=== PATIENT | male | born 1940 | race Caucasian/White ===

== ENCOUNTER → 2017-10-20 11:01 | Outpatient (CLI) | payer MEDICARE, OTHER, SELFPAY ==
--- NOTE | 2017-10-20 11:01 | DT_ITS ---
This patient was seen during an EMR downtime October 13, 2017 - October 20, 2017. This patient may have a combination of paper and electronic documentation or all paper documentation. All documentation is viewable within the e-chart portion of [facility] for each patient visit.
[2017-10-20 12:27] LABS: Absolute Lymphocyte Count 2.15 X10^3/ul (0.83-4.51); Absolute Neutrophil Count 3.6 X10^3/uL (2.0-7.7); Basophil# 0.06 X10^3/uL; Basophil% 0.9 % (0-1); Eosinophil# 0.48 X10^3/uL; Eosinophils% 6.9 % (0-5); Hematocrit 43.3 % (40-54); Hemoglobin 14.6 g/dl (13.0-16.5); Lymphocyte # 2.15 X10^3/ul (4.0); Lymphocyte % 31.1 % (19-41); Mean Corp Hgb Conc 33.7 g/gl (32-36); Mean Corpuscular Hgb 30.4 pg (27.0-32.0); Mean Corpuscular Volume 90.2 fL (80-94); Mean Platelet Vol. 9.4 fl (6.2-12.0); Monocyte# 0.66 X10^3/uL; Monocyte% 9.6 % (0-10); Neutrophil # 3.56 X10^3/uL (2.7-7.7); Neutrophil % 51.5 % (47-70); Platelet Count 209 K/mm3 (150-450); RBC Distribution Width CV 12.9 % (11.6-14.6); RBC Distribution Width SD 42.1 fl (35.1-43.9); White Blood Count 6.9 K/mm3 (4.4-11.0)
[2017-10-20 12:39] LABS: POSITIVE COUNT NO; POSITIVE DIFFERENTIAL NO; POSITIVE MORPHOLOGY NO
[2017-10-20 13:04] LABS: AST(SGOT) 24 U/L (15-37); Alanine Aminotransfer ALT/SGPT 21 U/L (16-61); Albumin, Serum 3.5 g/dL (3.2-5.0); Alkaline Phosphatase 119 U/L (45-117); Anion Gap 15 (5-15); BUN 17 mg/dL (7-18); BUN/Creat Ratio 17.7 RATIO (10-20); Calcium,Total 8.2 mg/dL (8.5-10.1); Chloride 105 mmol/L (98-107); Cholesterol 156 mg/dL (200); Creatinine, Serum 0.96 mg/dL (0.70-1.30); EST Glomerular Filtration Rate 81 mL/min (>60); Est Glom Filt Rate - Afr Amer 98 mL/min (>60); Globulin 3.4 g/dL (2.2-4.2); Glucose 83 mg/dL (74-106); High Density Lipoprotein 48 mg/dL; PSA,Total- Diagnostic 5.75 ng/mL (0.0-4.0); Potassium 4.2 mmol/L (3.5-5.1); Protein, Total 6.9 g/dL (6.4-8.2); Sodium Level 149 mmol/L (136-145); Triglycerides 189 mg/dL; Very Low Density Lipoprotein 38 mg/dL (5-40)
== END ==
PROVIDERS: Family Provider Family Medicine; PCP Family Medicine; Visit Provider Family Medicine
DX: I10 Essential (primary) hypertension (principal); C61 Malignant neoplasm of prostate
CPT/HCPCS: 36415; 80053; 80061; 84153; 85025

== ENCOUNTER → 2018-04-14 11:12 | Outpatient (CLI) | payer MEDICARE, OTHER, SELFPAY ==
[2018-04-14 15:42] LABS: Absolute Lymphocyte Count 1.83 X10^3/ul (0.83-4.51); Absolute Neutrophil Count 3.1 X10^3/uL (2.0-7.7); Basophil# 0.05 X10^3/uL; Basophil% 0.8 % (0-1); Eosinophil# 0.33 X10^3/uL; Eosinophils% 5.5 % (0-5); Hematocrit 42.9 % (40-54); Hemoglobin 14.7 g/dl (13.0-16.5); Lymphocyte # 1.83 X10^3/ul (4.0); Lymphocyte % 30.6 % (19-41); Mean Corp Hgb Conc 34.3 g/gl (32-36); Mean Corpuscular Hgb 31.7 pg (27.0-32.0); Mean Corpuscular Volume 92.5 fL (80-94); Mean Platelet Vol. 9.8 fl (6.2-12.0); Monocyte# 0.67 X10^3/uL; Monocyte% 11.2 % (0-10); Neutrophil # 3.09 X10^3/uL (2.7-7.7); Neutrophil % 51.7 % (47-70); Platelet Count 241 K/mm3 (150-450); RBC Distribution Width CV 12.8 % (11.6-14.6); RBC Distribution Width SD 42.4 fl (35.1-43.9); Red Blood Count 4.64 M/mm3 (4.6-6.2)
[2018-04-14 15:57] LABS: POSITIVE COUNT NO; POSITIVE DIFFERENTIAL NO; POSITIVE MORPHOLOGY NO
[2018-04-14 16:04] LABS: AST(SGOT) 27 U/L (15-37); Alanine Aminotransfer ALT/SGPT 25 U/L (16-61); Albumin, Serum 3.4 g/dL (3.2-5.0); Alkaline Phosphatase 110 U/L (45-117); Anion Gap 10 (5-15); BUN 18 mg/dL (7-18); BUN/Creat Ratio 16.8 RATIO (10-20); Calcium,Total 8.4 mg/dL (8.5-10.1); Chloride 105 mmol/L (98-107); Cholesterol 178 mg/dL (200); Creatinine, Serum 1.07 mg/dL (0.70-1.30); EST Glomerular Filtration Rate 71 mL/min (>60); Est Glom Filt Rate - Afr Amer 86 mL/min (>60); Globulin 3.3 g/dL (2.2-4.2); Glucose 78 mg/dL (74-106); High Density Lipoprotein 51 mg/dL; PSA,Total- Diagnostic 6.87 ng/mL (0.0-4.0); Potassium 3.9 mmol/L (3.5-5.1); Protein, Total 6.7 g/dL (6.4-8.2); Sodium Level 141 mmol/L (136-145); Triglycerides 88 mg/dL; Very Low Density Lipoprotein 18 mg/dL (5-40)
== END ==
PROVIDERS: Family Provider Family Medicine; PCP Family Medicine; Visit Provider Nurse Practitioner Adult Health
DX: R97.20 Elevated prostate specific antigen [PSA] (principal); I10 Essential (primary) hypertension; C61 Malignant neoplasm of prostate
CPT/HCPCS: 36415; 80053; 80061; 84153; 85025

== ENCOUNTER → 2018-07-14 10:08 | Outpatient (CLI) | payer MEDICARE, OTHER, SELFPAY ==
[2018-07-14 12:43] LABS: PSA,Total- Diagnostic 6.67 ng/mL (0.0-4.0)
== END ==
PROVIDERS: Family Provider Family Medicine; PCP Family Medicine; Visit Provider Family Medicine
DX: C61 Malignant neoplasm of prostate (principal)
CPT/HCPCS: 36415; 84153

== ENCOUNTER → 2018-09-30 11:00 | Outpatient (CLI) | payer MEDICARE, OTHER, SELFPAY ==
--- NOTE | 2018-09-30 11:15 | RAD_ITS ---
HISTORY: right rib pain. NKI. hx of prostate ca COMPARISON: 08/15/16 radiographs. FINDINGS: XR Ribs Unilateral W/ PA Chest Min 3 Views: LINES/DEVICES: None. LUNGS: Radiographically clear. No consolidation, edema or effusion. No pneumothorax. MEDIASTINUM AND CARDIOVASCULAR STRUCTURES: Cardiac silhouette not enlarged. Central airways and mediastinal contour are unremarkable. RIBS AND OSSEOUS STRUCTURES: Prominent degenerative changes right glenohumeral joint again demonstrated. No fractures. RAD/Ribs Uni Min 3V w/PA Chest IMPRESSION: No acute findings. at 0420 Reported and signed by: Jed Collins MD Electronically Signed: Jed Collins, at 4:19 EDT Tel , Service support ,
== END ==
PROVIDERS: Family Provider Family Medicine; PCP Family Medicine; Referring Provider Family Medicine; Visit Provider Family Medicine
DX: R07.81 Pleurodynia (principal)
CPT/HCPCS: 71101

== ENCOUNTER → 2018-10-06 12:38 | Outpatient (CLI) | payer MEDICARE, OTHER, SELFPAY ==
--- NOTE | 2018-10-06 12:41 | CT_ITS ---
STUDY: CT ABDOMEN AND PELVIS WITH CONTRAST REASON FOR EXAM: Male, 78 years old. Right-sided abdominal pain. History of prostate cancer. RADIATION DOSAGE (If Supplied By Facility): CTDIvol = ( 15.61 ) mGy, DLP = ( 1188.41 ) mGycm TECHNIQUE: Transaxial images were obtained from the dome of the diaphragm to the symphysis pubis with oral contrast. 100 IV/Oral Isovue 300 was administered. Sagittal and coronal images were reconstructed. Individualized dose optimization techniques were used for this CT. COMPARISON: None. FINDINGS: Mild degree of increased markings at the lung bases suggestive of basilar scarring. The visualized portions of the heart are within normal limits. There is decreased attenuation of the liver consistent with steatosis. Normal gallbladder and extrahepatic biliary system. Normal spleen. Normal pancreas. Normal bilateral adrenal glands. Normal right kidney. Normal left kidney. Normal visualized stomach. Normal small intestine. There are multiple colonic diverticula consistent with diverticulosis. The appendix is visualized and appears normal. There is diffuse atherosclerotic calcification of the abdominal aorta, without a demonstrated aneurysm. Normal inferior vena cava. Normal retroperitoneum. Normal urinary bladder. There is a small umbilical hernia containing fat. Small bilateral inguinal hernias containing fat. There are diffuse degenerative changes of the visualized lumbar spine. Straightening of the normal lumbar lordosis. CT/Abdomen/Pelvis WITH Contrast IMPRESSION: Sigmoid diverticulosis. Electronically Signed: Zaki Jacobo, at 15:58 EDT , Service support ,
[2018-10-06 15:01] LABS: CREATININE FINGERSTICK 1.5 mg/dL (0.70-1.30)
== END ==
PROVIDERS: Family Provider Family Medicine; PCP Family Medicine; Referring Provider Family Medicine; Visit Provider Family Medicine
DX: R10.9 Unspecified abdominal pain (principal)
CPT/HCPCS: 74177; Q9967

== ENCOUNTER → 2018-11-03 14:51 | Outpatient (CLI) | payer MEDICARE, OTHER, SELFPAY ==
[2018-11-03 14:45] VITALS: BMI 28.8
--- NOTE | 2018-11-03 14:54 | RAD_ITS ---
STUDY: X-RAY - LEFT SHOULDER REASON FOR EXAM: Pain. TECHNIQUE: 4 view(s) of the shoulder. COMPARISON: None. FINDINGS: There is glenohumeral arthrosis with small marginal osteophytes of the humeral head and joint space narrowing, progressed since the prior study. There is acromioclavicular arthrosis. Normal acromion. Normal humeral head and visualized proximal humerus. There is mildly increased calcific tendinitis since the prior study. Normal visualized pulmonary apex. RAD/Shoulder min 2 Views IMPRESSION: Glenohumeral arthrosis. Calcific tendinitis. Electronically Signed: Harsha Johnson MD at 10:49 EDT Tel , Service support ,
--- NOTE | 2018-11-03 14:54 | RAD_ITS ---
STUDY: X-RAY - CERVICAL SPINE REASON FOR EXAM: Male, 78 years old. Pain TECHNIQUE: 5 view(s) of the cervical spine were obtained. COMPARISON: May 29, 2010 FINDINGS: Normal anterior atlantoaxial articulation. Normal odontoid process. Normal cervical lordosis. No evidence for acute fracture or subluxation. Narrowed disc space at C4-5, C5-6 and C6-7 with osteophytic spurring. There is associated bilateral multilevel neuroforaminal stenosis also due to bony hypertrophy The soft tissue structures are unremarkable. RAD/Cerv Spine 4 or 5 Views IMPRESSION: No evidence for acute fracture or subluxation. Moderate spondylosis.. Electronically Signed: Renny Cano MD at 17:06 EDT , Service support ,
== END ==
PROVIDERS: Family Provider Family Medicine; PCP Family Medicine; Referring Provider Orthopaedic Surgery; Visit Provider Orthopaedic Surgery
DX: M25.512 Pain in left shoulder (principal); R20.0 Anesthesia of skin; R20.2 Paresthesia of skin
CPT/HCPCS: 72050; 73030

== ENCOUNTER → 2019-01-19 10:38 | Outpatient (CLI) | payer MEDICARE, OTHER, SELFPAY ==
[2017-12-13 09:41] VITALS: BMI 28.8
[2019-01-05 09:43] VITALS: BMI 28.8
[2019-01-19 12:50] LABS: Absolute Lymphocyte Count 1.75 X10^3/uL (0.83-4.51); Absolute Neutrophil Count 4.1 X10^3/uL (2.0-7.7); Basophil# 0.05 X10^3/uL; Basophil% 0.7 % (0-1); Eosinophil# 0.26 X10^3/uL; Eosinophils% 3.8 % (0-5); Hematocrit 43.1 % (40-54); Hemoglobin 14.3 g/dL (13.0-16.5); Lymphocyte # 1.75 X10^3/ul (4.0); Lymphocyte % 25.7 % (19-41); Mean Corp Hgb Conc 33.2 g/dL (32-36); Mean Corpuscular Hgb 30.5 pg (27.0-32.0); Mean Corpuscular Volume 91.9 fL (80-94); Mean Platelet Vol. 9.2 fl (6.2-12.0); Monocyte# 0.65 X10^3/uL; Monocyte% 9.5 % (0-10); NRBC Flagged by Analyzer 0 % (0-5); Neutrophil % 60.2 % (47-70); Platelet Count 242 K/mm3 (150-450); RBC Distribution Width CV 13.1 % (11.6-14.6); RBC Distribution Width SD 43.9 fl (35.1-43.9); Red Blood Count 4.69 M/mm3 (4.6-6.2); White Blood Count 6.8 K/mm3 (4.4-11.0)
[2019-01-19 13:18] LABS: ALB/GLOB Ratio 1.1 RATIO (0.9-2.4); AST(SGOT) 23 U/L (15-37); Alanine Aminotransfer ALT/SGPT 28 U/L (16-61); Albumin, Serum 3.3 g/dL (3.2-5.0); Alkaline Phosphatase 104 U/L (45-117); Anion Gap 7 (5-15); BUN 22 mg/dL (7-18); Calcium,Total 8.4 mg/dL (8.5-10.1); Chloride 110 mmol/L (98-107); Cholesterol 150 mg/dL (200); Creatinine, Serum 0.96 mg/dL (0.70-1.30); EST Glomerular Filtration Rate 81 mL/min (>60); Est Glom Filt Rate - Afr Amer 98 mL/min (>60); Globulin 3.1 g/dL (2.2-4.2); Glucose 119 mg/dL (74-106); High Density Lipoprotein 49 mg/dL; PSA,Total- Diagnostic 7.04 ng/mL (0.0-4.0); Potassium 3.6 mmol/L (3.5-5.1); Protein, Total 6.4 g/dL (6.4-8.2); Sodium Level 142 mmol/L (136-145); Triglycerides 116 mg/dL; Very Low Density Lipoprotein 23 mg/dL (5-40)
== END ==
PROVIDERS: Family Provider Family Medicine; PCP Family Medicine; Visit Provider Family Medicine
DX: I10 Essential (primary) hypertension (principal); E78.5 Hyperlipidemia, unspecified; C61 Malignant neoplasm of prostate
CPT/HCPCS: 36415; 80053; 80061; 84153; 85025

== ENCOUNTER → 2019-07-22 | Outpatient (CLI) | payer MEDICARE, OTHER, SELFPAY ==
[2019-01-05 09:43] VITALS: BMI 28.8
[2019-03-07 10:48] VITALS: BMI 28.8
[2019-07-22 12:41] LABS: Absolute Lymphocyte Count 1.97 X10^3/uL (0.83-4.51); Absolute Neutrophil Count 3.4 X10^3/uL (2.0-7.7); Basophil# 0.05 X10^3/uL; Basophil% 0.8 % (0-1); Eosinophil# 0.36 X10^3/uL; Eosinophils% 5.6 % (0-5); Hematocrit 43.5 % (40-54); Hemoglobin 14.6 g/dL (13.0-16.5); Lymphocyte # 1.97 X10^3/ul (4.0); Lymphocyte % 30.5 % (19-41); Mean Corp Hgb Conc 33.6 g/dL (32-36); Mean Corpuscular Hgb 31.2 pg (27.0-32.0); Mean Corpuscular Volume 92.9 fL (80-94); Mean Platelet Vol. 9.6 fl (6.2-12.0); Monocyte# 0.69 X10^3/uL; Monocyte% 10.7 % (0-10); NRBC Flagged by Analyzer 0 % (0-5); Neutrophil # 3.35 X10^3/uL (2.7-7.7); Neutrophil % 51.9 % (47-70); Platelet Count 244 K/mm3 (150-450); RBC Distribution Width CV 12.3 % (11.6-14.6); RBC Distribution Width SD 41.7 fl (35.1-43.9); Red Blood Count 4.68 M/mm3 (4.6-6.2); White Blood Count 6.5 K/mm3 (4.4-11.0)
[2019-07-22 13:25] LABS: ALB/GLOB Ratio 1.1 RATIO (0.9-2.4); AST(SGOT) 21 U/L (15-37); Alanine Aminotransfer ALT/SGPT 25 U/L (16-61); Albumin, Serum 3.3 g/dL (3.2-5.0); Alkaline Phosphatase 123 U/L (45-117); Anion Gap 7 (5-15); BUN 15 mg/dL (7-18); BUN/Creat Ratio 14.3 RATIO (10-20); Calcium,Total 8.2 mg/dL (8.5-10.1); Chloride 107 mmol/L (98-107); Cholesterol 134 mg/dL (200); Creatinine, Serum 1.05 mg/dL (0.70-1.30); EST Glomerular Filtration Rate 72 mL/min (>60); Est Glom Filt Rate - Afr Amer 88 mL/min (>60); Glucose 88 mg/dL (74-106); High Density Lipoprotein 51 mg/dL; PSA,Total - Annual Screen 6.02 ng/mL (0.00-4.00); Potassium 4.1 mmol/L (3.5-5.1); Protein, Total 6.3 g/dL (6.4-8.2); Sodium Level 140 mmol/L (136-145); Triglycerides 65 mg/dL; Very Low Density Lipoprotein 13 mg/dL (5-40)
== END | disposition home or self-care (01) ==
LOC: BFHLAB 09:10
PROVIDERS: Family Provider Family Medicine; PCP Family Medicine; Visit Provider Family Medicine
DX: C61 Malignant neoplasm of prostate (principal); I10 Essential (primary) hypertension; E78.5 Hyperlipidemia, unspecified
CPT/HCPCS: 36415; 80053; 80061; 84153; 85025; G0103

== ENCOUNTER 2019-10-01 16:33 | Observation (INO) | payer MEDICARE, OTHER, SELFPAY ==
[2019-03-07 10:48] VITALS: BMI 28.8
[2019-10-01] VITALS (7 sets, daily range): BP systolic 134–163; BP diastolic 76–104; PULSE 56–65; RESP 14–16; TEMP 36.3–36.6; O2SAT 92–97; BMI 28.2; BMI 27.6
--- NOTE | 2019-10-01 17:04 | EKG12_ITS ---
Test Reason : Blood Pressure : / mmHG Vent. Rate : 061 BPM Atrial Rate : 061 BPM P-R Int : 208 ms QRS Dur : 084 ms QT Int : 416 ms P-R-T Axes : 055 046 055 degrees QTc Int : 418 ms Normal sinus rhythm Normal ECG Confirmed by ANTHONY MEADE MD ([id number]), communications editor NOLBERTO GYU ([id number]) on 10/05/2019 2:21:29 PM Referred By: SCAR Confirmed By:ANTHONY MEADE MD
--- NOTE | 2019-10-01 17:05 | ED.DCSUM_ITS ---
History of Present Illness Chief Complaint: Chest Pain Informant: Patient Onset: Today - Approximately 1.25 hours ago, Days - Similar episode 4 days ago Context: Sudden Onset Timing: Intermittent - Duration 15 to 30 minutes Quality: Pressure type sensation Location: Mid chest to suprasternal notch Current Severity: Pain-free Maximum Severity: Severe Worsened by: Nothing Relieved by: Nothing Associated Symptoms: Nausea, diaphoresis and shortness of breath Narrative: Patient is an elderly 79-year-old male with history of hypertension hypercholesterolemia who quit smoking 30 years ago presents with midsternal chest tight pressure sensation 4 days ago and today that lasted approximately 15 to 20 minutes duration. The pain was associated with nausea, diaphoresis shortness of breath. He denies history of hiatal hernia or reflux. Denies black or maroon stool. Has blood in his stool. He denies food intolerance. The pain is not positional. The pain occurred at rest both times. He states Dr. Bowman performed a cardiac catheterization 10 years ago and was negative . He discontinued taking aspirin 6 months ago. Patient was concerned because he states the pain was severe and he got clammy with shortness of breath. Prior similar symptoms: No Recent Illness/Hospitalization: No - Past Medical History (1) History of hypertension Status: Acute (2) History of hypercholesterolemia Status: Acute Past Medical History - Allergies and Home Meds Allergies/Adverse Reactions: Allergies No Known Allergies Allergy (Unverified 10/01/19 16:38) Primary Care Physician: Wilfredo Pitts DO [Primary Care Provider] - Prior records reviewed: Yes Surgical History: - - Cardiac cath 10 years ago compartment syndrome right leg requiring fasciotomy Lives: Spouse/ Significant Other Smoking Status: Former smoker Alcohol: None Drugs: None Review of Systems General: Denies: Chills, Fever, Sweats Eyes: Denies: Visual changes - bilaterally, Diplopia ENT: Denies: Rhinorrhea, Sore throat Cardiovascular: Reports: Chest pain. Denies: Palpitations, Heart racing, -, - Respiratory: Reports: Dyspnea Gastrointestinal: Reports: Nausea. Denies: Abdominal pain, Vomiting, Diarrhea, Constipation, Melena, Hematochezia, -, - Genitourinary: Denies: Dysuria, Hematuria, Frequency Musculoskeletal: Denies: Myalgias, Arthralgias, Neck pain, Back pain, Swelling, Extremity Pain, -, - Skin: Denies: Rash, Wounds Neurological: Denies: Headache, Weakness, Numbness Hematologic: Denies: Easy bruising, Easy bleeding Physical Exam Vital Signs/Narrative: Vital Signs Temp Pulse Resp BP Pulse Ox 10/01/19 16:34 97.3 F L 63 15 150/92 H 97 Inital Vital Signs reviewed: Yes General: Well nourished, Well developed, No Acute Distress Head: Normocephalic, Atraumatic Eyes: Perrl, EOMI. Negative for: Pale conjunctiva, Scleral icterus ENT: Moist mucous membranes, No rhinorrhea Neck: Supple, Nontender, No lymphadenopathy, No JVD Cardiovascular: Regular rate, Regular rhythm, No murmurs, Normal S1, Normal S2 Respiratory: No distress, CTA bilaterally, Chest nontender Abdomen: Soft, Nontender, Nondistended, Normal bowel sounds, No masses Back: Nontender, Normal Inspection Extremities: Nontender, No edema. Negative for: Calf Tenderness Skin: Normal color, No rash, No Trauma. Negative for: Cyanosis, Diaphoresis, Jaundice Neurological: Alert, Oriented x3, Cranial nerves II-XII grossly intact, Normal Strength, Normal Sensation Psychological: Normal affect, Normal Mood Diagnostic/Tx/Re-eval Chest X-Ray - ED: 1 View, Normal, Heart, Lungs, Mediastinum, Bony Structures, No Acute Disease Impressions Chest X-Ray 10/01/19 17:15 IMPRESSION: Normal x-ray examination of the chest. Electronically Signed: Stephen Lawrence MD at 17:36 EDT , Service support , 10/01/19 17:15 Chest 1 View (Portable) [RAD] Stat Laboratory Results 10/01/19 10/01/19 16:49 16:49 WBC 6.9 RBC 4.54 L Hgb 14.2 Hct 42.6 MCV 93.8 MCH 31.3 MCHC 33.3 RDW Std Deviation 43.4 RDW Coeff of Bandar 12.6 Plt Count 229 MPV 9.3 Immature Gran % (Auto) 0.300 Neut % (Auto) 50.0 Lymph % (Auto) 30.0 [place] % (Auto) 12.0 H Eos % (Auto) 6.8 H Baso % (Auto) 0.9 Absolute Neuts (auto) 3.5 Absolute Lymphs (auto) 2.07 Nucleated RBC % 0 Sodium 139 Potassium 4.3 Chloride 107 Carbon Dioxide 27.0 Anion Gap 5 BUN 22 H Creatinine 1.13 Estim Creat Clear Calc 63.35 Est GFR (MDRD) Af Amer 81 Est GFR (MDRD) Non-Af 67 BUN/Creatinine Ratio 19.5 Glucose 92 Calcium 8.5 Troponin I < 0.015 Patient's work-up is negative. Patient's heart score is 5. Hospitalist was made aware patient and he will admit to PCU for further testing. - EKG Initial EKG Interpretation: Sinus Rhythm - Sinus rhythm with a ventricular rate of 61. MN interval 208 ms. QRS duration 84 ms. QT duration 416 ms. [place] is normal. EKG was normal. - Medical Decision Making Zentz with midsternal chest tightness with diaphoresis, shortness breath nausea need to rule out cardiac etiology versus noncardiac etiology. EKG and appropriate blood work was ordered. He will receive aspirin in the emergency department. ED Disposition - Plan for ED Patient: Disposition: Acute Care Hospital [facility] Diagnosis: Precordial chest pain, History of hypercholesterolemia, History of hypertension Referrals: Wilfredo Pitts DO [Primary Care Provider] -
--- NOTE | 2019-10-01 17:15 | RAD_ITS ---
STUDY: X-RAY CHEST REASON FOR EXAM: Male, 79 years old. chest pain TECHNIQUE: Single frontal view of the chest. COMPARISON: March 23, 2012 right RIBS August 15, 2016 FINDINGS: The lungs are clear and expanded. There is no demonstrated pleural abnormality. Normal size heart. Normal mediastinum and ar. Normal visualized pulmonary arteries. Normal visualized aortic arch and descending thoracic aorta. Normal visualized thoracic spine. Normal visualized ribs, clavicles, and shoulders. There is no demonstrated abnormality of the visualized soft tissue structures of the upper abdomen. RAD/Chest 1 View (Portable) IMPRESSION: Normal x-ray examination of the chest. Electronically Signed: Stephen Lawrence MD at 17:36 EDT , Service support ,
[2019-10-01] MEDS: Aspirin 81 MG TAB.CHEW 324 MG PO (17:24)
[2019-10-01 17:41] LABS: Absolute Lymphocyte Count 2.07 X10^3/uL (0.83-4.51); Absolute Neutrophil Count 3.5 X10^3/uL (2.0-7.7); Basophil# 0.06 X10^3/uL; Basophil% 0.9 % (0-1); Eosinophil# 0.47 X10^3/uL; Eosinophils% 6.8 % (0-5); Hematocrit 42.6 % (40-54); Hemoglobin 14.2 g/dL (13.0-16.5); Lymphocyte # 2.07 X10^3/ul (4.0); Mean Corp Hgb Conc 33.3 g/dL (32-36); Mean Corpuscular Hgb 31.3 pg (27.0-32.0); Mean Corpuscular Volume 93.8 fL (80-94); Mean Platelet Vol. 9.3 fl (6.2-12.0); Monocyte# 0.83 X10^3/uL; NRBC Flagged by Analyzer 0 % (0-5); Neutrophil # 3.45 X10^3/uL (2.7-7.7); Platelet Count 229 K/mm3 (150-450); RBC Distribution Width CV 12.6 % (11.6-14.6); RBC Distribution Width SD 43.4 fl (35.1-43.9); Red Blood Count 4.54 M/mm3 (4.6-6.2); White Blood Count 6.9 K/mm3 (4.4-11.0)
[2019-10-01 17:54] LABS: Anion Gap 5 (5-15); BUN 22 mg/dL (7-18); BUN/Creat Ratio 19.5 RATIO (10-20); Calcium,Total 8.5 mg/dL (8.5-10.1); Chloride 107 mmol/L (98-107); Creatinine, Serum 1.13 mg/dL (0.70-1.30); EST Glomerular Filtration Rate 67 mL/min (>60); Est Glom Filt Rate - Afr Amer 81 mL/min (>60); Estimated Creatinine Clearance 63.35 ml/min; Glucose 92 mg/dL (74-106); Potassium 4.3 mmol/L (3.5-5.1); Sodium Level 139 mmol/L (136-145)
--- NOTE | 2019-10-01 18:27 | PCM.HP.STD ---
Problem List (1) Atypical chest pain Status: Acute (2) History of hypertension Status: Chronic (3) History of hypercholesterolemia Status: Chronic History of Present Illness Date of Admission: 10/01/19 Chief Complaint: Chest pain 2 episodes in 1 week The patient is a 79 year old M with history of hypertension and dyslipidemia came to ER with chest pain, precordial with radiation to suprasternal notch, lasted for about 20 minutes. Pain started spontaneously at rest, felt like pressure, squeezing sensation with mild shortness of breath without aggravating or relieving factor. He had similar episode about a 1 week ago. He had mild diaphoresis but denies near syncope, syncope. He had similar chest pain about 10 to 15 years ago and was sent to [facility] by Dr. Bowman most probably had negative cath as verbally reported by the patient In ED, blood pressure is elevated 160/97 otherwise no hypoxia or tachypnea. EKG independently reviewed shows normal sinus rhythm at [address]-T abnormality suggestive of acute ischemia. First troponin normal. [] Past Medical History Past Medical History (Chronic Problems): Chronic Problems (Last Reviewed 03/07/19 @ 10:48 by Shyla Willis) History of hypertension (Chronic) History of hypercholesterolemia (Chronic) Medical History: Medical History (Last Reviewed 03/07/19 @ 10:48 by Shyla Willis) Cancer C80.1 HTN (hypertension) I10 Allergies No Known Allergies Allergy (Unverified 10/01/19 16:38) Home Medications: Ambulatory Orders Medication Instructions Recorded amlodipine 5 mg tablet 5 mg PO DAILY 05/30/17 Citalopram [Celexa] 20 mg PO DAILY 10/01/19 Losartan Potassium [Cozaar] 100 mg PO DAILY 10/01/19 Lovastatin 10 mg PO DAILY 10/01/19 Surgical History: - - Cardiac cath 10 years ago compartment syndrome right leg requiring fasciotomy Lives: Spouse/ Significant Other Smoking Status: Former smoker - Quit 25 years ago. Started at age of 25 smoked 1 to 2 cigarettes/week until age of 45. Alcohol: None Drugs: None - *Family History Paternal Family History: Family History (Last Reviewed 03/07/19 @ 10:48 by Shyla Willis) Other Leukemia History Items: No pertinent history Maternal Family History: Family History (Last Reviewed 03/07/19 @ 10:48 by Shyla Willis) Other Leukemia History Items: Heart Disease, Hypertension Review of Systems Constitutional: Denies: Chills, Fever, Weight Change HEENT: Denies: Head Aches, Sinus Congestion, Sinus Drainage Cardiovascular: Reports: Chest Pain. Denies: Palpitations Respiratory: Reports: Shortness of breath at rest. Denies: Cough, Sputum production Gastrointestinal: Denies: Abdominal Pain, Nausea, Vomiting Genitourinary: Denies: Dysuria Musculoskeletal: Denies: Joint Pain, Joint Tenderness Skin: Denies: Rash, Wounds Neurological: Denies: Numbness, Tingling, Focal weakness Psychiatric: Denies: Anxiety, Depression, Homicidal Ideations, Suicidal Ideations Hematologic/ Lymphatic: Denies: Easy Bruising, Easy Bleeding VTE Information - Inpt Only VTE Present on Admission: No VTE Mechan Device Prophylaxis: None VTE Pharm Prophylaxis ordered?: Yes - Physical Exam Vitals/I&O's: Vital Signs Temp Pulse Resp BP Pulse Ox 97.6 F L 65 15 160/97 H 96 10/01/19 18:17 10/01/19 18:17 10/01/19 18:17 10/01/19 18:17 10/01/19 18:17 Oxygen Delivery Method Room Air Weight: 225 lb 12.054 oz Body Mass Index (BMI) 28.2 General: Alert, Oriented x3, Cooperative HEENT: Atraumatic, PERRLA, EOMI, Normocephalic Neck: Supple, No JVD, Negative Carotid Bruits Lungs: Clear to auscultation, Normal air movement, No rhonchi, No wheeze, No rales Cardiovascular: Regular rate, Regular Rhythm, Normal S1, Normal S2, No murmurs Abdomen: Bowel Sounds Present, Soft, Non Tender, Non-Distended Extremities: No edema, Capillary Refill Less than 3 Seconds Skin: No rashes, No breakdown Musculoskeletal: No Tenderness to Palpation of Joints or Extremities Neurological: Cranial nerves II-XII grossly intact, Deep Tendon Reflexes 2+/4 and Symmetrical, Neuro grossly intact Psych/Mental Status: Normal Affect, Appropriate Laboratory Results 10/01/19 16:49: WBC 6.9, RBC 4.54 L, Hgb 14.2, Hct 42.6, MCV 93.8, MCH 31.3, MCHC 33.3, RDW Std Deviation 43.4, RDW Coeff of Bandar 12.6, Plt Count 229, MPV 9.3, Immature Gran % (Auto) 0.300, Neut % (Auto) 50.0, Lymph % (Auto) 30.0, [place] % (Auto) 12.0 H, Eos % (Auto) 6.8 H, Baso % (Auto) 0.9, Absolute Neuts (auto) 3.5, Absolute Lymphs (auto) 2.07, Nucleated RBC % 0 10/01/19 16:49: Sodium 139, Potassium 4.3, Chloride 107, Carbon Dioxide 27.0, Anion Gap 5, BUN 22 H, Creatinine 1.13, Estim Creat Clear Calc 63.35, Est GFR (MDRD) Af Amer 81, Est GFR (MDRD) Non-Af 67, BUN/Creatinine Ratio 19.5, Glucose 92, Calcium 8.5, Troponin I < 0.015 Assessment/Plan All Active Problems (Last Reviewed 03/07/19 @ 10:48 by Shyla Willis) Atypical chest pain (Acute) The patient is a 79 year old M with history of hypertension and dyslipidemia came to ER with chest pain, precordial with radiation to suprasternal notch, lasted for about 20 minutes. In ED, blood pressure is elevated 160/97 otherwise no hypoxia or tachypnea. EKG independently reviewed shows normal sinus rhythm at [address]-T abnormality suggestive of acute ischemia. First troponin normal. 1. Atypical chest pain, probably angina pectoris: Patient is going to PCU. Serial troponin and EKG. If troponins and EKG are negative, treadmill nuclear stress test tomorrow a.m. Fasting profile and TSH tomorrow a.m. 2. Hypertension, uncontrolled: Patient is on amlodipine 5 mg daily and Cozaar 100 mg daily. Hydralazine 10 mg IV q. 4 hourly for residual blood pressure more than 180 mmHg. Monitor blood pressure. 3. Dyslipidemia: Patient on lovastatin. 4. DVT prophylaxis: Moderate risk, on Lovenox 40 mg subcu daily. Laboratory Results 10/01/19 16:49: WBC 6.9, RBC 4.54 L, Hgb 14.2, Hct 42.6, MCV 93.8, MCH 31.3, MCHC 33.3, RDW Std Deviation 43.4, RDW Coeff of Bandar 12.6, Plt Count 229, MPV 9.3, Immature Gran % (Auto) 0.300, Neut % (Auto) 50.0, Lymph % (Auto) 30.0, [place] % (Auto) 12.0 H, Eos % (Auto) 6.8 H, Baso % (Auto) 0.9, Absolute Neuts (auto) 3.5, Absolute Lymphs (auto) 2.07, Nucleated RBC % 0 10/01/19 16:49: Sodium 139, Potassium 4.3, Chloride 107, Carbon Dioxide 27.0, Anion Gap 5, BUN 22 H, Creatinine 1.13, Estim Creat Clear Calc 63.35, Est GFR (MDRD) Af Amer 81, Est GFR (MDRD) Non-Af 67, BUN/Creatinine Ratio 19.5, Glucose 92, Calcium 8.5, Troponin I < 0.015 [] Clinical Impression(s) from Imaging Studies Chest X-Ray 10/01/19 17:15 IMPRESSION: Normal x-ray examination of the chest. OBSV E&M: [id number] Initial observation care L2
--- NOTE | 2019-10-01 20:38 | EKG12_ITS ---
Test Reason : CP ADMIT Blood Pressure : / mmHG Vent. Rate : 058 BPM Atrial Rate : 058 BPM P-R Int : 230 ms QRS Dur : 084 ms QT Int : 428 ms P-R-T Axes : 059 021 041 degrees QTc Int : 420 ms Sinus bradycardia with 1st degree A-V block Otherwise normal ECG Confirmed by ANAHY MEDINA, SHARA ([id number]), photo editor NOLBERTO GUY ([id number]) on 10/07/2019 3:08:08 PM Referred By: DR STEVE Confirmed By:SHARA HIGGINBOTHAM MD
[2019-10-01] MEDS: Enoxaparin 40 MG/0.4 ML Syringe SC (21:53)
[2019-10-01] MEDS: Losartan Potassium 100 MG Tablet PO (21:54)
[2019-10-01] MEDS: 0.45% Normal Saline 1,000 ML 75 ML IV (21:55)
[2019-10-01] MEDS: Atorvastatin Calcium 40 MG Tablet PO (21:59)
[2019-10-02 03:00] VITALS: PULSE 60
[2019-10-02 03:49] VITALS: BP 128/79; PULSE 60; RESP 14; TEMP 36.6; O2SAT 96
--- NOTE | 2019-10-02 05:55 | EKG12_ITS ---
Test Reason : AM EKG Blood Pressure : / mmHG Vent. Rate : 059 BPM Atrial Rate : 059 BPM P-R Int : 226 ms QRS Dur : 086 ms QT Int : 424 ms P-R-T Axes : 063 033 049 degrees QTc Int : 419 ms Sinus bradycardia with 1st degree A-V block Otherwise normal ECG Confirmed by ANAHY MEDINA, SHARA ([id number]), medical transcription editor NOLBERTO GUY ([id number]) on 10/07/2019 2:50:56 PM Referred By: DR STEVE Confirmed By:SHARA HIGGINBOTHAM MD
[2019-10-02 06:07] LABS: Cholesterol 147 mg/dL (200); High Density Lipoprotein 46 mg/dL; Thyroid Stim Hormone (TSH) 2.26 uIU/mL (0.358-3.74); Triglycerides 123 mg/dL; Very Low Density Lipoprotein 25 mg/dL (5-40)
[2019-10-02 06:25] VITALS: BP 134/88; PULSE 60; RESP 16; TEMP 36.6; O2SAT 93
[2019-10-02] MEDS: Aspirin E.C. 81 MG Tablet PO (06:28)
[2019-10-02 06:29] VITALS: O2SAT 94
[2019-10-02] MEDS: Losartan Potassium 100 MG Tablet PO (06:29)
[2019-10-02] MEDS: Citalopram 20 MG Tablet PO (10:43)
[2019-10-02] MEDS: amLODIPine 5 MG Tablet PO (10:43)
--- NOTE | 2019-10-02 10:59 | STRESSREP ---
Stress Test Report Exercise myocardial perfusion stress test. 79-year-old man with a history of chest pain. Stress protocol: Resting EKG demonstrates normal sinus rhythm with a rate of 67 bpm normal intervals are noted resting blood pressure is 132/78 mmHg. The patient exercised according to regular Wilmer protocol for a total duration of 7 minutes. The maximum heart rate attained was 139 bpm which was 98% of maximum. Heart rate the maximum workload was 8.5 metabolic equivalents. At rest there were no ST or T wave changes noted suggest ischemia at peak exercise upsloping ST changes only were noted with no meet the criteria for ischemia. The resting blood pressure was 132/78 with a peak blood pressure 168/78. No clinical angina was noted. Myocardial perfusion protocol. 12.0 mCi of technetium 99m sestamibi was injected at rest. The patient exercised according to regular Wilmer protocol for 7 minutes at peak exercise 36.0 mCi of technetium 99m sestamibi was injected stress images were obtained stress and rest images were reconstructed in comparing the short axis vertical long horizontal long axis. Gated images were also obtained Perfusion SPECT analysis: Review of the stress images demonstrate mildly reduced uptake of tracer noted in the inferior wall on the stress and resting images. The above is suggestive of GI attenuation artifact. No obvious areas of reversibility are noted suggest ischemia. Gated SPECT analysis: The gated ejection fraction is noted to be 55%. Conclusion: Exercise myocardial perfusion stress test with no obvious ischemia noted. Likely GI attenuation artifact noted though previous infarct cannot be completely excluded.
--- NOTE | 2019-10-02 11:07 | DCINST_ITS ---
- Discharge Diagnoses Current Active Problems: Current Active and Chronic Problems (Last Reviewed 03/07/19 @ 10:48 by Shyla Willis) History of hypertension (Chronic) History of hypercholesterolemia (Chronic) Precordial chest pain (Acute) You will use the following diet at home:: Cardiac Your liquids should be the consistency of: Regular/Thin Discharge Activity: Return to Normal Activity Call your doctor if you observe: Fever of 101 or Higher, Numbness or Tingling, Inability to urinate, Inability to have a bowel movement, Shortness of breath, Dizziness, Fainting spells, Swelling in the ankles, Prolonged hiccoughing, Increased palpitations (irregular heartbeat), Calf discomfort, Uncontrolled pain Allergies/Adverse Reactions: Allergies No Known Allergies Allergy (Unverified 10/01/19 16:38) Medications to take at Discharge amlodipine 5 mg tablet 5 mg PO DAILY 05/30/17 Citalopram [Celexa] 20 mg PO DAILY 10/01/19 Losartan Potassium [Cozaar] 100 mg PO DAILY 10/01/19 Lovastatin 10 mg PO DAILY 10/01/19 Primary Care Physician: Wilfredo Pitts DO [Primary Care Provider] - Please follow up with your Primary Care Physician in: IN 2 WEEKS Test Results: Test results from this visit will be discussed in further detail at your follow- up appointment, if applicable.
--- NOTE | 2019-10-02 11:09 | DS.PCM_ITS ---
Discharge Date and Diagnosis Date of Admission: 10/01/19 Date of Discharge: 10/02/19 - Primary Discharge Diagnosis Acute Problems: Active Problems (Last Reviewed 03/07/19 @ 10:48 by Shyla Willis) Precordial chest pain (Acute) - Secondary Discharge Diagnosis Chronic Problems: Chronic Problems (Last Reviewed 03/07/19 @ 10:48 by Shyla Willis) History of hypertension (Chronic) History of hypercholesterolemia (Chronic) Hospital Course and Treatment Imaging Results: 10/02/19 05:55 Nuclear Stress Test - Treadmil [NM] AM (NON MEDS) Summary of Care Provided: [] The patient is a 79 year old M with history of hypertension and dyslipidemia came to ER with chest pain, precordial with radiation to suprasternal notch, lasted for about 20 minutes. In ED, blood pressure is elevated 160/97 otherwise no hypoxia or tachypnea. EKG independently reviewed shows normal sinus rhythm at [address]-T abnormality suggestive of acute ischemia. First troponin normal. 1. Atypical chest pain, probably angina pectoris: Patient is going to PCU. Serial troponin and EKG were negative for acute ischemia. Fasting lipids were within normal limit, LDL 76, HDL 46, TSH 2.26. Patient had treadmill nuclear stress test with a negative for acute stress-induced ischemia. Patient is discharged home. 2. Hypertension, uncontrolled: Patient is on amlodipine 5 mg daily and Cozaar 100 mg daily. Hydralazine 10 mg IV q. 4 hourly for residual blood pressure more than 180 mmHg. Blood pressure controlled. 3. Dyslipidemia: Patient on lovastatin. 4. DVT prophylaxis: Moderate risk, on Lovenox 40 mg subcu daily. Discharge medication reconciliation done. Discharge follow-up instructions completed. Discharge process discussed with the patient and all questions were answered to patient's satisfaction. Total time spent, exact 35 minutes on discharge meds reconciliation, examination, coordination of care with nurses and ancillary staff, review of imaging and blood test and discussion with the patient on follow-up instructions Subjective: Seen and examined. Patient did not had chest pain/discomfort or pressure after admission. On treadmill patient did not had chest pain or shortness of breath or acute event. Blood pressures controlled. - Physical Exam Vitals/I&O's: Vital Signs Temp Pulse Resp BP Pulse Ox 97.8 F 60 16 134/88 H 94 10/02/19 06:25 10/02/19 06:25 10/02/19 06:25 10/02/19 06:25 10/02/19 06:29 Oxygen Delivery Method Room Air Weight: 221 lb 1.978 oz Body Mass Index (BMI) 27.6 Intake and Output for Last 24 Hours 09/30/19 10/01/19 10/02/19 23:59 23:59 23:59 Intake Total 395 / 395 0 / 0 Balance 395 / 395 0 / 0 General: Alert, Oriented x3, Cooperative HEENT: Atraumatic, PERRLA, EOMI, Normocephalic Neck: Supple, No JVD, Negative Carotid Bruits Lungs: Clear to auscultation, Normal air movement, No rhonchi, No wheeze, No rales Cardiovascular: Regular rate, Regular Rhythm, Normal S1, Normal S2, No murmurs Abdomen: Bowel Sounds Present, Soft, Non Tender, Non-Distended Extremities: No edema, Capillary Refill Less than 3 Seconds Skin: No rashes, No breakdown Musculoskeletal: No Tenderness to Palpation of Joints or Extremities Neurological: Cranial nerves II-XII grossly intact, Deep Tendon Reflexes 2+/4 and Symmetrical, Neuro grossly intact Psych/Mental Status: Normal Affect, Appropriate Laboratory Results 10/01/19 16:49: WBC 6.9, RBC 4.54 L, Hgb 14.2, Hct 42.6, MCV 93.8, MCH 31.3, MCHC 33.3, RDW Std Deviation 43.4, RDW Coeff of Bandar 12.6, Plt Count 229, MPV 9.3, Immature Gran % (Auto) 0.300, Neut % (Auto) 50.0, Lymph % (Auto) 30.0, [place] % (Auto) 12.0 H, Eos % (Auto) 6.8 H, Baso % (Auto) 0.9, Absolute Neuts (auto) 3.5, Absolute Lymphs (auto) 2.07, Nucleated RBC % 0 10/01/19 16:49: Sodium 139, Potassium 4.3, Chloride 107, Carbon Dioxide 27.0, Anion Gap 5, BUN 22 H, Creatinine 1.13, Estim Creat Clear Calc 63.35, Est GFR (MDRD) Af Amer 81, Est GFR (MDRD) Non-Af 67, BUN/Creatinine Ratio 19.5, Glucose 92, Calcium 8.5, Troponin I < 0.015 10/01/19 19:28: Troponin I < 0.015 10/01/19 22:18: Troponin I < 0.015 10/02/19 05:22: Triglycerides 123, Cholesterol 147, LDL Cholesterol 76, VLDL Cholesterol 25, HDL Cholesterol 46, TSH 2.26 Current Medications Acetaminophen (Tylenol) 650 mg PO Q6H PRN PRN PRN Reason: Pain Score 1-10/Temp > 100.7 F Albuterol Sulfate (Ventolin Aerosols) 2.5 mg INHALATION Q2H PRN PRN PRN Reason: SOB/Wheezing Amlodipine Besylate (Norvasc) 5 mg PO DAILY [facility] Last Admin: 10/02/19 10:43 Dose: 5 mg Documented by: Aspirin (Ecotrin) 81 mg PO DAILY@0800 [facility] Last Admin: 10/02/19 06:28 Dose: 81 mg Documented by: Atorvastatin Calcium (Lipitor) 40 mg PO QHS [facility] Last Admin: 10/01/19 21:59 Dose: 40 mg Documented by: Citalopram Hydrobromide (Celexa) 20 mg PO DAILY [facility] Last Admin: 10/02/19 10:43 Dose: 20 mg Documented by: Dextrose (D50w Syringe) 0 gm IV X1 PRN; Protocol PRN Reason: Hypoglycemia Enoxaparin Sodium (Lovenox) 40 mg SC DAILY [facility] Last Admin: 10/02/19 08:17 Dose: Not Given Documented by: Glucagon () 1 mg IM .X1 PRN PRN Reason: Hypoglycemia Hydralazine HCl (Apresoline Iv) 10 mg IV Q4H PRN PRN PRN Reason: SBP more than 180 mmHg Sodium Chloride () 250 mls @ 15 mls/hr IV .[id number] PRN PRN Reason: Saline Flush Sodium Chloride () 250 mls @ 15 mls/hr IV .[id number] PRN PRN Reason: Additional IVPB Infusion Losartan Potassium (Cozaar) 100 mg PO DAILY [facility] Last Admin: 10/02/19 06:29 Dose: 100 mg Documented by: Morphine Sulfate () 2 mg IV Q3H PRN PRN PRN Reason: Pain Score 6-10/10 Nitroglycerin (Nitrostat) 0.4 mg SUBLINGUAL Q5M PRN PRN Reason: CARDIAC/CHEST PAIN Ondansetron HCl (Zofran) 4 mg IV Q8H PRN PRN PRN Reason: NAUSEA/VOMITING Oxycodone HCl (Oxyir) 5 mg PO Q4H PRN PRN PRN Reason: Pain Score 4-5/10 Senna/Docusate Sodium (Senokot-S, Wendi-Colace) 2 tablet PO BID PRN PRN PRN Reason: Constipation Sodium Chloride () 10 - 40 ml IV UD PRN PRN Reason: SALINE FLUSH Discharge Activity: Return to Normal Activity Call your doctor if you observe: Fever of 101 or Higher, Numbness or Tingling, Inability to urinate, Inability to have a bowel movement, Shortness of breath, Dizziness, Fainting spells, Swelling in the ankles, Prolonged hiccoughing, Increased palpitations (irregular heartbeat), Calf discomfort, Uncontrolled pain Home Medications: Medications to take at Discharge amlodipine 5 mg tablet 5 mg PO DAILY 05/30/17 RX: Citalopram [Celexa] 20 mg PO DAILY 10/01/19 RX: Losartan Potassium [Cozaar] 100 mg PO DAILY 10/01/19 RX: Lovastatin 10 mg PO DAILY 10/01/19 Primary Care Physician: Wilfredo Pitts DO [Primary Care Provider] - Please follow up with your Primary Care Physician in: IN 2 WEEKS Medical Necessity - Tobacco Use Smoking Status: Former smoker Tobacco Use: Cigarettes Meaningful Use Info Meaningful Use Diagnoses (Choose all that apply): None applicable OBSV E&M: 92681 Observation care discharge
== END 2019-10-02 11:08 | disposition home or self-care (01) ==
LOC: ED 18:32 → PCU 19:19
PROVIDERS: Admitting Provider Internal Medicine; Emergency Provider Emergency Medicine; PCP Family Medicine; Visit Provider Internal Medicine
DX: R07.2 Precordial pain (principal); I10 Essential (primary) hypertension; E78.5 Hyperlipidemia, unspecified; R06.02 Shortness of breath; R11.0 Nausea; Z79.899 Other long term (current) drug therapy; Z87.891 Personal history of nicotine dependence
CPT/HCPCS: 36415; 71045; 78452; 80048; 80061; 84443; 84484; 85025; 93005; 93017; 96360; 96361; 96372; 99218; 99285; A9500; A4216; G0378

== ENCOUNTER → 2019-11-17 | Outpatient (CLI) | payer MEDICARE, OTHER, SELFPAY ==
[2019-11-04 15:22] VITALS: BMI 27.9
--- NOTE | 2019-11-17 06:49 | US_ITS ---
STUDY: ABDOMINAL ULTRASOUND REASON FOR EXAM: Male, 79 years old. CHEST PAIN X 1 YEAR INTERMITTENT TECHNIQUE: Transabdominal ultrasound was performed with real-time and static pastrana scale imaging. TECHNICAL QUALITY: Adequate. COMPARISON: None. FINDINGS: Liver: The liver measures 16.9 cm. There is normal echogenicity of the liver. The bile ducts are within normal limits. There is hepatic color flow. The direction of portal flow is hepatopetal. There is no demonstrated mass lesion. Portal vein measurement: Gallbladder: Normal distended gallbladder. The gallbladder wall measures 2.8 mm. There is a negative sonographic Rubio''s sign. There is no pericholecystic fluid. There are no gallstones. Common Bile Duct (C.B.D.): The common bile duct measures 5.4 mm. Pancreas: Normal size of the head, body and tail of the pancreas. There is increased echogenicity of the pancreas. There is no demonstrated pancreatic mass or cyst. Spleen: There is mild splenomegaly. The spleen measures 13.5 cm x 4.8 cm x 6.5 cm. Right Kidney: Normal size of the right kidney. The right kidney measures 11.4 cm x 5.5 cm x 5.9 cm. Normal renal cortex. The right cortex measures 2.2 cm. There is no demonstrated renal mass or cyst. There is no right hydronephrosis. Left Kidney: Normal size of the left kidney. The left kidney measures 11.7 cm x 5.1 cm x 5.3 cm. Normal renal cortex. The left cortex measures 2.0 cm. There is no demonstrated renal mass or cyst. There is no left hydronephrosis. Aorta: Minimal calcific plaque I.V.C.: The IVC is patent. There is no ascites. US/Abdomen Complete IMPRESSION: Mild splenomegaly. Electronically Signed: Zaki Jacobo, at 10:47 EDT , Service support ,
--- NOTE | 2019-11-17 06:55 | CT_ITS ---
STUDY: CT CHEST WITH CONTRAST REASON FOR EXAM: Male, 79 years old. PRECORDIAL PAIN, Hx prostate CA, no treatment per patient RADIATION DOSAGE (If Supplied By Facility): CTDIvol = ( 16.87 ) mGy, DLP = ( 714.48 ) mGycm TECHNIQUE: Transaxial imaging was performed following intravenous administration of IV 100mL Isovue-300. Multiplanar coronal and sagittal images were reformatted. Individualized dose optimization techniques were used for this CT. COMPARISON: None. FINDINGS: Small benign-appearing bilateral axillary lymph nodes. Minimal increased linear markings in the posterior medial segment of the right lower lobe. Focal bronchiectasis. This is in keeping with the scarring. Minimal scarring is also seen in the posterior segment of the left lower lobe. There is no demonstrated pleural abnormality. There are calcifications of the coronary arteries. There are multiple small lymph nodes within the mediastinum, which are normal in size and morphology most compatible with reactive lymph hyperplasia. Normal hilar regions. Normal enhanced pulmonary arteries. Normal aorta arch and descending thoracic aorta. There are multi-level degenerative changes of the thoracic spine. There is no demonstrated abnormality of the visualized upper abdomen. CT/Chest WITH Contrast IMPRESSION: Mild scarring at the lung bases slightly more prominent on the right side. Electronically Signed: Zaki Jacobo, at 9:01 EDT , Service support ,
[2019-11-17 07:00] LABS: CREATININE FINGERSTICK 1.2 mg/dL (0.70-1.30); EGFR FINGERSTICK > 60.0000 mL/min (>60)
== END | disposition home or self-care (01) ==
LOC: US 06:49
PROVIDERS: PCP Family Medicine; Referring Provider Internal Medicine Cardiovascular Disease; Visit Provider Internal Medicine Cardiovascular Disease
DX: R07.2 Precordial pain (principal); K21.9 Gastro-esophageal reflux disease without esophagitis; E78.00 Pure hypercholesterolemia, unspecified; I12.9 Hypertensive chronic kidney disease with stage 1 through stage 4 chronic kidney disease, or unspecified chronic kidney disease; N18.3 Chronic kidney disease, stage 3 (moderate)
CPT/HCPCS: 71260; 76700; Q9967

== ENCOUNTER → 2019-11-25 | Outpatient (CLI) | payer MEDICARE, OTHER, SELFPAY ==
[2019-11-04 15:22] VITALS: BMI 27.9
--- NOTE | 2019-11-25 09:43 | RAD_ITS ---
STUDY: X-RAY - RIGHT SHOULDER REASON FOR EXAM: Shoulder pain. TECHNIQUE: 4 view(s) of the shoulder. COMPARISON: Radiographs 09/02/2011. FINDINGS: There are marginal osteophytes of the humeral head and glenohumeral joint loss, increased since the prior study. There is acromioclavicular arthrosis. Normal acromion. There is a small cyst in the greater tuberosity. There are intra-articular bodies in the glenohumeral joint. There is calcific tendinitis. Normal visualized pulmonary apex. RAD/Shoulder min 2 Views IMPRESSION: Glenohumeral arthrosis with intra-articular bodies. Calcific tendinitis. Acromioclavicular arthrosis. Electronically Signed: Harsha Johnson MD at 10:32 EDT Tel , Service support ,
== END | disposition home or self-care (01) ==
LOC: HPRAD 09:43
PROVIDERS: PCP Family Medicine; Referring Provider Orthopaedic Surgery; Visit Provider Orthopaedic Surgery
DX: M25.511 Pain in right shoulder (principal)
CPT/HCPCS: 73030

== ENCOUNTER → 2020-02-14 | Outpatient (CLI) | payer MEDICARE, OTHER, SELFPAY ==
[2019-03-07 10:48] VITALS: BMI 28.8
[2019-11-25 10:09] VITALS: BMI 27.9
[2020-02-14 12:02] LABS: Absolute Lymphocyte Count 2.18 X10^3/uL (0.83-4.51); Absolute Neutrophil Count 4.7 X10^3/uL (2.0-7.7); Basophil# 0.05 X10^3/uL; Basophil% 0.6 % (0-1); Eosinophil# 0.21 X10^3/uL; Eosinophils% 2.7 % (0-5); Hematocrit 43.4 % (40-54); Lymphocyte # 2.18 X10^3/ul (4.0); Lymphocyte % 27.9 % (19-41); Mean Corp Hgb Conc 34.6 g/dL (32-36); Mean Corpuscular Hgb 33.5 pg (27.0-32.0); Mean Corpuscular Volume 96.9 fL (80-94); Mean Platelet Vol. 9.3 fl (6.2-12.0); Monocyte# 0.69 X10^3/uL; Monocyte% 8.8 % (0-10); NRBC Flagged by Analyzer 0 % (0-5); Neutrophil # 4.66 X10^3/uL (2.7-7.7); Neutrophil % 59.6 % (47-70); Platelet Count 218 K/mm3 (150-450); RBC Distribution Width CV 13.2 % (11.6-14.6); RBC Distribution Width SD 45.5 fl (35.1-43.9); Red Blood Count 4.48 M/mm3 (4.6-6.2); White Blood Count 7.8 K/mm3 (4.4-11.0)
[2020-02-14 12:31] LABS: ALB/GLOB Ratio 1.1 RATIO (0.9-2.4); AST(SGOT) 21 U/L (15-37); Alanine Aminotransfer ALT/SGPT 26 U/L (16-61); Albumin, Serum 3.5 g/dL (3.2-5.0); Alkaline Phosphatase 115 U/L (45-117); Anion Gap 5 (5-15); BUN 13 mg/dL (7-18); BUN/Creat Ratio 13.5 RATIO (10-20); Calcium,Total 8.7 mg/dL (8.5-10.1); Chloride 103 mmol/L (98-107); Cholesterol 186 mg/dL (200); Creatinine, Serum 0.96 mg/dL (0.70-1.30); EST Glomerular Filtration Rate 80 mL/min (>60); Est Glom Filt Rate - Afr Amer 97 mL/min (>60); Globulin 3.3 g/dL (2.2-4.2); Glucose 96 mg/dL (74-106); High Density Lipoprotein 65 mg/dL; PSA,Total- Diagnostic 9.51 ng/mL (0.0-4.0); Protein, Total 6.8 g/dL (6.4-8.2); Sodium Level 137 mmol/L (136-145); Triglycerides 112 mg/dL; Very Low Density Lipoprotein 22 mg/dL (5-40)
== END | disposition home or self-care (01) ==
LOC: BFHLAB 09:00
PROVIDERS: PCP Family Medicine; Visit Provider Family Medicine
DX: C61 Malignant neoplasm of prostate (principal); I10 Essential (primary) hypertension; E78.5 Hyperlipidemia, unspecified; Z51.81 Encounter for therapeutic drug level monitoring
CPT/HCPCS: 36415; 80053; 80061; 84153; 85025

== ENCOUNTER → 2020-08-16 09:15 | Outpatient (CLI) | payer MEDICARE, OTHER, SELFPAY ==
[2019-11-25 10:09] VITALS: BMI 27.9
[2020-08-16 13:12] LABS: PSA,Total- Diagnostic 6.21 ng/mL (0.0-4.0)
== END ==
PROVIDERS: PCP Family Medicine; Referring Provider Family Medicine; Visit Provider Family Medicine
DX: C61 Malignant neoplasm of prostate (principal)
CPT/HCPCS: 36415; 84153

== ENCOUNTER → 2021-02-05 | Outpatient (CLI) | payer MEDICARE, OTHER, SELFPAY ==
[2019-11-25 10:09] VITALS: BMI 27.9
== END | disposition home or self-care (01) ==
LOC: LABSPEC 16:59
PROVIDERS: PCP Family Medicine; Visit Provider Family Medicine
DX: Z20.822 Contact with and (suspected) exposure to COVID-19 (principal)
CPT/HCPCS: 87635; U0005; U0003

== ENCOUNTER → 2021-02-08 13:39 | Outpatient (CLI) | payer MEDICARE, OTHER, SELFPAY ==
--- NOTE | 2021-02-08 13:45 | RAD_ITS ---
EXAM: XR CHEST, 2 VIEWS CLINICAL INDICATION: DYSPNEA TECHNIQUE: Frontal and lateral views of the chest. This report was created using [employer] report generation technology. COMPARISON: 10/01/2019 FINDINGS: LUNGS AND PLEURAL SPACES: Unremarkable. No consolidation or edema. No pneumothorax. No effusion. HEART: Unremarkable. Cardiac silhouette not enlarged. MEDIASTINUM: Central airways and mediastinal contour are unremarkable. BONES/JOINTS: Unremarkable. SOFT TISSUES: Unremarkable. RAD/Chest PA and Lateral IMPRESSION: No radiographic evidence of acute cardiopulmonary disease. Electronically Signed: Bakari De León MD at 21:39 EDT , Service support ,
[2021-02-08 15:16] LABS: Absolute Lymphocyte Count 1.75 X10^3/uL (0.83-4.51); Basophil# 0.07 X10^3/uL; Basophil% 0.9 % (0-1); Eosinophil# 0.26 X10^3/uL; Eosinophils% 3.2 % (0-5); Hematocrit 43.5 % (40-54); Hemoglobin 14.2 g/dL (13.0-16.5); Lymphocyte # 1.75 X10^3/ul (0.83-4.51); Lymphocyte % 21.4 % (19-41); Mean Corp Hgb Conc 32.6 g/dL (32-36); Mean Corpuscular Hgb 31.4 pg (27.0-32.0); Mean Corpuscular Volume 96.2 fL (80-94); Mean Platelet Vol. 9.3 fl (6.2-12.0); Monocyte# 0.99 X10^3/uL; Monocyte% 12.1 % (0-10); NRBC Flagged by Analyzer 0 % (0-5); Neutrophil # 5.04 X10^3/uL (2.7-7.7); Neutrophil % 61.8 % (47-70); Platelet Count 294 K/mm3 (150-450); RBC Distribution Width CV 12.8 % (11.6-14.6); RBC Distribution Width SD 45.7 fl (35.1-43.9); Red Blood Count 4.52 M/mm3 (4.6-6.2); White Blood Count 8.2 K/mm3 (4.4-11.0)
[2021-02-08 15:40] LABS: AST(SGOT) 17 U/L (15-37); Alanine Aminotransfer ALT/SGPT 22 U/L (16-61); Albumin, Serum 3.3 g/dL (3.2-5.0); Alkaline Phosphatase 100 U/L (45-117); Anion Gap 7 (5-15); BUN 13 mg/dL (7-18); BUN/Creat Ratio 13.6 RATIO (10-20); CPK Total, Creatine Kinase 32 U/L (39-308); Calcium,Total 8.8 mg/dL (8.5-10.1); Chloride 105 mmol/L (98-107); Cholesterol 171 mg/dL (200); Creatinine, Serum 0.96 mg/dL (0.70-1.30); EST Glomerular Filtration Rate 80 mL/min (>60); Est Glom Filt Rate - Afr Amer 97 mL/min (>60); Globulin 3.3 g/dL (2.2-4.2); Glucose 89 mg/dL (74-106); High Density Lipoprotein 57 mg/dL; Potassium 4.3 mmol/L (3.5-5.1); Protein, Total 6.6 g/dL (6.4-8.2); Sodium Level 138 mmol/L (136-145); Triglycerides 168 mg/dL; Very Low Density Lipoprotein 34 mg/dL (5-40)
[2021-02-08 15:54] LABS: D-Dimer Quantitative (DVT/PE) 2.85 FEU/ug/m (0.27-0.49)
== END ==
PROVIDERS: PCP Family Medicine; Referring Provider Family Medicine; Visit Provider Family Medicine
DX: R06.00 Dyspnea, unspecified (principal); R53.83 Other fatigue; I10 Essential (primary) hypertension; C61 Malignant neoplasm of prostate; I25.10 Atherosclerotic heart disease of native coronary artery without angina pectoris; K76.0 Fatty (change of) liver, not elsewhere classified
CPT/HCPCS: 36415; 71046; 80053; 80061; 82550; 84153; 85025; 85379; G0103

== ENCOUNTER → 2021-02-09 07:14 | Outpatient (CLI) | payer MEDICARE, OTHER, SELFPAY ==
--- NOTE | 2021-02-09 07:16 | CT_ITS ---
STUDY: CTA CHEST REASON FOR EXAM: Male, 80 years old. 80YR OLD MALE W/ELEVATED DDIMER,DYSPNEA ON EXERTION RADIATION DOSAGE (If Supplied By Facility): CTDIvol = ( 12.39 ) mGy, DLP = ( 508.34 ) mGycm TECHNIQUE: The examination was performed with the intravenous administration of IV 100mL Isovue-300. Post-processing of the angiographic images was performed, with multiplanar reformation and 3D reconstruction. Individualized dose optimization techniques were used for this CT. COMPARISON: Comparison is made with prior chest radiograph dated 02/08/2021. FINDINGS: Normal enhancement of the main pulmonary artery and right and left pulmonary arteries. Normal enhancement of the bilateral peripheral pulmonary arteries. There is no demonstrated pulmonary embolism. Normal thoracic aorta and visualized great vessels. There is no demonstrated aortic dissection. There are calcifications of the coronary arteries. Normal mediastinum. Normal hilar regions. Normal visualized trachea and bronchi. The lungs are well expanded. Scattered calcified granulomas in the right lower lobe. Minimal increased markings in the posterior medial segment of the right lower lobe suggestive of scarring. Normal pleura. Normal chest wall structures. There are degenerative changes of thoracic spine. Normal visualized upper abdomen. CT/CTA Chest W/WO Contrast IMPRESSION: No acute abnormality is seen. Electronically Signed: Zaki Jacobo MD at 9:07 EDT , Service support ,
== END ==
PROVIDERS: PCP Family Medicine; Referring Provider Family Medicine; Visit Provider Family Medicine
DX: R06.00 Dyspnea, unspecified (principal)
CPT/HCPCS: 71275; Q9967

== ENCOUNTER → 2021-02-20 09:22 | Outpatient (CLI) | payer MEDICARE, OTHER, SELFPAY ==
--- NOTE | 2021-02-20 14:53 | PFTCOMP ---
COMPLETE PULMONARY FUNCTION TEST INTERPRETATION Brief HPI: Patient is an 80 year old male, currently under the care of Dr. Pitts, who presents to [facility] for complete pulmonary function tests secondary to diagnosis of dyspnea. Respiratory therapist reports good effort and reproducible results. Interpretation: Forced expiration spirometry shows a mild large airways obstructive ventilatory defect with an FEV1 of 102% predicted. There is a significant bronchodilator response in FEV1 by strict ATS criteria. Spirograms are of good quality and plateau slowly, indicating slowly emptying areas of the lungs. The respiratory flow volume loop shows decreased expiratory flow rates at all lung volumes consistent with airway obstruction. Lung volumes by body plethysmography show a normal total lung capacity at 6.94 L, 92% predicted. All other lung volumes are within normal limits. Diffusion capacity by carbon monoxide is normal at 112% predicted. The airway resistance is slightly elevated. No previous pulmonary function tests were available for review. Impression: Fully reversible mild large airways obstructive ventilatory defect in a pattern consistent with asthma
== END ==
PROVIDERS: PCP Family Medicine; Referring Provider Family Medicine; Visit Provider Family Medicine
DX: R06.00 Dyspnea, unspecified (principal)
CPT/HCPCS: 94060; 94726; 94729

== ENCOUNTER 2021-04-19 06:21 | Day surgery (SDC) | payer MEDICARE, OTHER, SELFPAY ==
[2021-04-19] VITALS (12 sets, daily range): BP systolic 104–144; BP diastolic 59–93; PULSE 65–747; RESP 16–18; TEMP 36.2–36.9; O2SAT 88–96; BMI 25.9
--- NOTE | 2021-04-19 06:31 | EKG12_ITS ---
Test Reason : PRE OP Blood Pressure : / mmHG Vent. Rate : 077 BPM Atrial Rate : 077 BPM P-R Int : 200 ms QRS Dur : 080 ms QT Int : 386 ms P-R-T Axes : 060 045 058 degrees QTc Int : 436 ms Normal sinus rhythm Normal ECG When compared with ECG of 02-OCT-2019 05:50, No significant change was found Confirmed by HALINA MEDINA, ANTHONY ([id number]), fan mail editor ALFIE TRIPP ([id number]) on 04/24/2021 7:36:53 AM Referred By: Ovi Goodman Confirmed By:ANTHONY MEADE MD
[2021-04-19] MEDS: Lactated Ringers 1,000 ML 15 ML IV (06:40)
--- NOTE | 2021-04-19 06:57 | HP.PCM_ITS ---
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 Is patient in pain?: No Allergies No Known Allergies Allergy (Unverified 04/13/21 09:46) Medications citalopram 20 mg PO DAILY 10/01/19 [History Confirmed 04/13/21] losartan 100 mg PO DAILY 10/01/19 [History Confirmed 04/13/21] lovastatin 10 mg PO DAILY 10/01/19 [History Confirmed 04/13/21] omeprazole 40 mg capsule,delayed release 40 mg PO BID 11/03/19 [History Confirmed 04/13/21] amlodipine 5 mg tablet 5 mg PO DAILY 11/04/19 [History Confirmed 04/13/21] PFSH Medical History BPH (benign prostatic hyperplasia) Cancer CKD (chronic kidney disease) stage 3, GFR 30-59 ml/min DDD (degenerative disc disease) Depression Essential hypertension GERD (gastroesophageal reflux disease) History of prostate cancer HTN (hypertension) Osteoarthritis Pure hypercholesterolemia Surgical History compartment surgery Rt LE Family History Mother CHF (congestive heart failure) Other Leukemia Social History Smoking Status: Former smoker alcohol intake: current alcohol intake frequency: a few times a week Alcohol type: beer caffeine: Yes Type: coffee Number of servings: 2 HPI HPI HPI: SABI BE, is a 80 M who presents to the office today for bilateral groin swelling. Patient is noted that this is been present for at least the last month. He reports burning and swelling in both groins. ROS General General: No weight change, appetite, fatigue, colon cancer, breast cancer or weakness HEENT HEENT: No difficulty swallowing, eye injury, eye surgery, swollen glands or hoarseness Endo Endocrine: No thyroid disease, diabetes mellitus, thyroid cancer, Hair loss, heat intolerance or cold intolerance Skin Skin: No rash or changing moles Breast Breast: No left breast lump, right breast lump, nipple discharge, breast pain, abnormal mammogram, abnormal US or breast enlargement Musc Musculoskeletal: Yes arthritis; No back problems, rheumatoid arthritis, gout or joint pain Cardio Cardiovascular: Yes high blood pressure; No murmur, pacemaker, heart disease, atrial fibrillation, heart attack, heart stent, palpitations, shortness of breat with exertion or chest pain Psych Psychiatric: No depression, anxiety or hearing voices Resp Respiratory: No shortness of breath, No sleep apnea, No cough, No COPD, No asthma, No emphysema and No wheezing Gastro Gastrointestinal: No abdominal pain, No nausea or vomiting, No diarrhea, No constipation, No blood in stool, No acid reflux, No hemorrhoids, No ulcers, No gallbladder problem and No black,tarry stools French Hematologic: No blood thinners, No blood disorders, No bleeding, No anemia and No blood clots Neuro Neurologic: No system reviewed and no additional complaints, except as documented, No as per HPI, No abnormal gait, No abnormal hearing, No abnormal movements, No abnormal speech, No behavioral changes, No burning sensations, No confusion, No convulsions, No disequilibrium, No dizziness, No localized weakness, No frequent falls, No headache(s), No lack of coordination, No loss of vision, No memory loss, No numbness, No other visual disturbances, No radicular pain, No restless legs, No sensory deficit, No syncope, No tingling, No tremor(s), No weakness and No other Exam Const General: cooperative Orientation: alert and oriented x3 [facility] Head: normal to inspection Neck Neck: normal visual inspection and full ROM Chest Chest palpation & inspection: normal inspection of the chest Resp Effort & Inspection: normal respiratory effort Auscultation: clear to auscultation bilaterally Cardio Rate: regular rate Rhythm: regular rhythm GI Inspection: non-distended Palpation: soft, hernia indirect inguinal bilaterally and nontender Skin General: no rashes or lesions noted Neuro General: patient alert and patient oriented x3 Extrem General: full ROM Psych Appearance: grossly normal Mental Status: mental status grossly normal Assessment and Plan Assessment and Plan (1) Bilateral inguinal hernia: Status: Acute Qualifiers: Obstruction and gangrene presence: without obstruction or gangrene Recu rrence: not specified as recurrent Qualified Code(s): K40.20 - Bilateral inguinal hernia, without obstruction or gangrene, not specified as recurrent Plan - Dr. Ovi Goodman MD: The patient has bilateral reducible inguinal hernias. I discussed robotic assisted laparoscopic bilateral inguinal hernia repair with mesh. I discussed the procedure in detail with the patient as well as the risks including not limited to bleeding, infection, injury to bowel or bladder, injury to spermatic cord, recurrence and I did discuss mesh placement with the patient. I will plan on bilateral inguinal hernia repair for the patient Ovi Goodman MD Pager: [facility] [address] [place] [address], [address] [place] [address] Office: I have re-examined the patient. There are no clinical changes since date of exam.
[2021-04-19] MEDS: Bupivacaine Mpf 0.5% 30 ML VIAL (09:20)
--- NOTE | 2021-04-19 09:36 | PCM.OPRPT ---
Problems Associated Problem List Diagnoses (1) Bilateral inguinal hernia: Report of Operation Date of Procedure: 04/19/21 Pre-Operative Diagnosis: Bilateral inguinal hernia Post-Operative Diagnosis: Bilateral direct inguinal hernias Surgery/Procedure Performed:: Robotic assisted laparoscopic bilateral inguinal hernia repair with mesh Description of Procedure: Patient was brought back to the operating room and general anesthesia was induced. The abdomen was prepped and draped in usual sterile fashion. A midline incision was made superior the umbilicus deep to the fascia which was elevated and a Veress needle was placed into the fascia and a drop test was performed. The abdomen was then insufflated to 15 mmHg and the Veress needle was removed. Port was placed into the abdomen and the camera was placed into the abdomen to check for injuries and there were none. Next the patient was placed in Trendelenburg position and the patient appeared to have 2 direct inguinal hernias. Under direct visualization a right lateral 8 mm port was placed and a left lateral 8 mm port was placed. The robot was then docked. Using electrocautery scissors an incision was made in the peritoneum in the right lower quadrant and dissection was deepened inferiorly until the hernia sac was reduced. Next ProGrip mesh was placed into the right groin and unfolded over the inguinal hernia. There is good overlap in all sides. The peritoneum was reapproximated completely covering the mesh using running 3 OV lock suture. Next attention was paid to the left side. In the same fashion electrocautery scissors used to make an incision in the left inguinal region. The left direct inguinal hernia was reduced and in the same fashion ProGrip mesh was placed in the left inguinal region and unfolded completely covering the hernia defect. The peritoneum was also reapproximated using a running 3 OV lock suture completely covering the mesh. There was a small defect in the peritoneum which was closed with an interrupted 3-0 Vicryl suture. The lower abdomen was inspected once more and both pieces of mesh were completely covered by peritoneum and there was good coverage with good hemostasis. The robot was then undocked and the abdomen was allowed to desufflate and then the ports were removed. The skin incisions were injected with local anesthetic and closed with interrupted 4-0 Monocryl sutures as well as Steri-Strips and bandages. Patient was awoken and taken to PACU. Scrotum was checked again the case and contain both testicles. Grafts/Implants Used: ProGrip mesh bilaterally Admit VTE Documentation VTE Mechan Device Prophylaxis: SCD's
--- NOTE | 2021-04-19 09:40 | EX.PCM.DISCH ---
Discharge Instructions Procedure Hernia Diet Discharge Diet: Light diet - advance as tolerated Activity Discharge Activity: May Not Drive (for 2-3 days or while taking narcotic pain meds.) and May Shower (with the bandage in place 1-2 days after surgery.) Lifting Restrictions: 20 pounds for 4 weeks. Additional Activity Instructions:: Climbing stairs is fine, walking is encouraged. Sitting in bed may be uncomfortable. Sitting up using your lateral muscles (sitting up sideways) is usually more comfortable. Do not drive, work heavy equipment of sign legal documents for 24 hours. If your hernia repair was an ingunial repair, you may have scrotal swelling, an ice pack and/or athletic support can provide more comfort. Pain medications may cause nausea, you should typically eat light foods as you take your pain medications. Pain medications may also cause constipation. If you have difficulty with this, discuss with your doctor. Dressing / Incision Call your doctor if your incision/area has: Continuous Slow Oozing, Sudden Increased Bleeding, Increased Pain/ Swelling, Increased Redness and Foul Smelling Discharge Call your doctor if you observe: Fever of 101 or Higher Suture Line Care: Avoid Pulling/Pushing and Avoid Pinching/Bending Remove Dressing in: 2 days Cleanse incision/area with: Soap & Water Follow Up Care Please Follow Up With: Ovi Goodman MD When: Please call to schedule 2 week follow up appointment. [phone] Test Results: Test results from this visit will be discussed in further detail at your follow-up appointment, if applicable. Discharge Plan Admission Attending Provider: Ovi Goodman Primary Care Provider: Wilfredo Pitts Discharge Orders/Prescriptions Prescriptions: New oxycodone-acetaminophen [Percocet] 5-325 mg tablet 1 tab PO Q6H PRN (Reason: pain) 5 Days Qty: 14 RF: 0 No Action amlodipine 5 mg tablet 5 mg PO DAILY RF: 0 omeprazole 40 mg capsule,delayed release(DR/EC) 40 mg PO BID RF: 0 lovastatin 10 MG tablet 10 mg PO QHS RF: 0 citalopram 20 MG tablet 40 mg PO DAILY RF: 0 losartan 100 MG tablet 100 mg PO DAILY RF: 0 albuterol sulfate 90 mcg/actuation Hfa Aerosol Inhaler 1 inh INHALATION Q6H PRN (Reason: SOB) RF: 0 montelukast [Singulair] 10 mg Tablet 10 mg PO QHS RF: 0 Referrals / Follow Up: Wilfredo Pitts DO [Primary Care Provider] - Disposition Disposition (needs filled in before D/C Order can be placed): Home, Self Care
[2021-04-19] MEDS: Ipratropium/Albuterol Sulfate 3 ML AMPUL.NEB INHALATION (10:38)
[2021-04-19] MEDS: oxyCODONE 5 MG Tablet PO (12:24)
== END 2021-04-19 12:40 | disposition home or self-care (01) ==
LOC: SDC 06:23 → AC 06:24
PROVIDERS: PCP Family Medicine; Referring Provider Surgery; Visit Provider Surgery
PROC: (CPT 49650; principal; 2021-04-19 07:40)
DX: K40.20 Bilateral inguinal hernia, without obstruction or gangrene, not specified as recurrent (principal); I12.9 Hypertensive chronic kidney disease with stage 1 through stage 4 chronic kidney disease, or unspecified chronic kidney disease; N18.30 Chronic kidney disease, stage 3 unspecified; F32.A Depression, unspecified; K21.9 Gastro-esophageal reflux disease without esophagitis; E78.00 Pure hypercholesterolemia, unspecified; Z79.899 Other long term (current) drug therapy; Z87.891 Personal history of nicotine dependence
CPT/HCPCS: 49650; 93005; 94640; 99251; J7120; G0463; J2405

== ENCOUNTER → 2021-12-27 | Outpatient (CLI) | payer MEDICARE, OTHER, SELFPAY ==
--- NOTE | 2021-12-27 16:34 | RAD_ITS ---
STUDY: X-RAY - RIGHT KNEE REASON FOR EXAM: Male, 81 years old. Pain and swelling. TECHNIQUE: 4 view(s) of the knee. COMPARISON: 07/13/2012 radiographs. FINDINGS: Medial and lateral meniscal chondrocalcinosis and mild degenerative changes are similar to prior. No apparent joint effusion. No fracture or dislocation. Normal bony mineralization. RAD/Knee 4 or More Views IMPRESSION: Medial and lateral meniscal chondrocalcinosis and mild degenerative changes are similar to prior. Electronically Signed: Jed Collins MD at 6:21 EDT Reading Location ID and State: [facility] / [place] Tel , Service support ,
== END | disposition home or self-care (01) ==
LOC: MTRAD 16:32
PROVIDERS: PCP Family Medicine; Referring Provider Family Medicine; Visit Provider Family Medicine
DX: M25.561 Pain in right knee (principal)
CPT/HCPCS: 73564

== ENCOUNTER → 2022-02-22 | Outpatient (CLI) | payer MEDICARE, OTHER, SELFPAY ==
[2022-02-22 15:42] LABS: Absolute Lymphocyte Count 1.89 X10^3/uL (0.83-4.51); Absolute Neutrophil Count 7.2 X10^3/uL (2.0-7.7); Basophil# 0.08 X10^3/uL; Basophil% 0.8 % (0-1); Eosinophil# 0.22 X10^3/uL; Eosinophils% 2.1 % (0-5); Hematocrit 40.8 % (40-54); Hemoglobin 13.8 g/dL (13.0-16.5); Lymphocyte # 1.89 X10^3/ul (0.83-4.51); Lymphocyte % 18.1 % (19-41); Mean Corp Hgb Conc 33.8 g/dL (32-36); Mean Corpuscular Hgb 32.3 pg (27.0-32.0); Mean Corpuscular Volume 95.6 fL (80-94); Mean Platelet Vol. 10.1 fl (6.2-12.0); Monocyte# 1.01 X10^3/uL; Monocyte% 9.7 % (0-10); NRBC Flagged by Analyzer 0 % (0-5); Neutrophil # 7.18 X10^3/uL (2.7-7.7); Neutrophil % 68.8 % (47-70); Platelet Count 224 K/mm3 (150-450); RBC Distribution Width CV 12.9 % (11.6-14.6); RBC Distribution Width SD 45.2 fl (35.1-43.9); Red Blood Count 4.27 M/mm3 (4.6-6.2); White Blood Count 10.4 K/mm3 (4.4-11.0)
[2022-02-22 16:03] LABS: ALB/GLOB Ratio 0.9 RATIO (0.9-2.4); AST(SGOT) 16 U/L (15-37); Alanine Aminotransfer ALT/SGPT 18 U/L (16-61); Alkaline Phosphatase 101 U/L (45-117); Anion Gap 6 (5-15); BUN 20 mg/dL (7-18); Calcium,Total 8.9 mg/dL (8.5-10.1); Chloride 105 mmol/L (98-107); Cholesterol 184 mg/dL (200); Creatinine, Serum 1.54 mg/dL (0.70-1.30); EST Glomerular Filtration Rate 46 mL/min (>60); Est Glom Filt Rate - Afr Amer 56 mL/min (>60); Globulin 3.2 g/dL (2.2-4.2); Glucose 92 mg/dL (74-106); High Density Lipoprotein 53 mg/dL; PSA,Total - Annual Screen 8.53 ng/mL (0.00-4.00); Potassium 4.2 mmol/L (3.5-5.1); Protein, Total 6.2 g/dL (6.4-8.2); Sodium Level 139 mmol/L (136-145); Triglycerides 160 mg/dL; Very Low Density Lipoprotein 32 mg/dL (5-40)
== END | disposition home or self-care (01) ==
LOC: BFHLAB 11:36
PROVIDERS: PCP Family Medicine; Visit Provider Family Medicine
DX: I25.10 Atherosclerotic heart disease of native coronary artery without angina pectoris (principal); I10 Essential (primary) hypertension; E78.5 Hyperlipidemia, unspecified; Z12.5 Encounter for screening for malignant neoplasm of prostate
CPT/HCPCS: 36415; 80053; 80061; 84153; 85025; G0103

== ENCOUNTER → 2022-03-14 | Outpatient (CLI) | payer MEDICARE, OTHER, SELFPAY ==
[2022-03-14 15:49] LABS: Anion Gap 8 (5-15); BUN 14 mg/dL (7-18); BUN/Creat Ratio 10.7 RATIO (10-20); Calcium,Total 8.9 mg/dL (8.5-10.1); Chloride 101 mmol/L (98-107); Creatinine, Serum 1.31 mg/dL (0.70-1.30); EST Glomerular Filtration Rate 56 mL/min (>60); Est Glom Filt Rate - Afr Amer 68 mL/min (>60); Glucose 95 mg/dL (74-106); Potassium 3.7 mmol/L (3.5-5.1); Sodium Level 137 mmol/L (136-145)
== END | disposition home or self-care (01) ==
LOC: BFHLAB 13:03
PROVIDERS: PCP Family Medicine; Visit Provider Family Medicine
DX: I10 Essential (primary) hypertension (principal)
CPT/HCPCS: 36415; 80048

== ENCOUNTER → 2022-03-26 | Outpatient (CLI) | payer MEDICARE, OTHER, SELFPAY ==
[2022-03-26 17:54] LABS: Anion Gap 7 (5-15); BUN 13 mg/dL (7-18); BUN/Creat Ratio 13.2 RATIO (10-20); Calcium,Total 8.6 mg/dL (8.5-10.1); Chloride 106 mmol/L (98-107); Creatinine, Serum 0.98 mg/dL (0.70-1.30); EST Glomerular Filtration Rate 78 mL/min (>60); Est Glom Filt Rate - Afr Amer 94 mL/min (>60); Glucose 92 mg/dL (74-106); Potassium 4.1 mmol/L (3.5-5.1); Sodium Level 140 mmol/L (136-145); Uric Acid 5.6 mg/dL (3.5-7.2)
== END | disposition home or self-care (01) ==
LOC: BFHLAB 14:11
PROVIDERS: PCP Family Medicine; Visit Provider Family Medicine
DX: M10.9 Gout, unspecified (principal); I10 Essential (primary) hypertension
CPT/HCPCS: 36415; 80048; 84550

== ENCOUNTER → 2022-04-24 | Outpatient (CLI) | payer MEDICARE, OTHER, SELFPAY ==
[2022-04-24 13:12] LABS: Anion Gap 8 (5-15); BUN 21 mg/dL (7-18); BUN/Creat Ratio 19.3 RATIO (10-20); Calcium,Total 8.5 mg/dL (8.5-10.1); Chloride 104 mmol/L (98-107); Creatinine, Serum 1.09 mg/dL (0.70-1.30); EST Glomerular Filtration Rate 69 mL/min (>60); Est Glom Filt Rate - Afr Amer 83 mL/min (>60); Glucose 98 mg/dL (74-106); Potassium 3.6 mmol/L (3.5-5.1); Sodium Level 139 mmol/L (136-145)
== END | disposition home or self-care (01) ==
LOC: BFHLAB 10:58
PROVIDERS: PCP Family Medicine; Visit Provider Family Medicine
DX: I10 Essential (primary) hypertension (principal)
CPT/HCPCS: 36415; 80048

== ENCOUNTER → 2022-12-23 | Outpatient (CLI) | payer MEDICARE, OTHER, SELFPAY ==
[2022-12-23 17:43] LABS: Absolute Lymphocyte Count 2.25 X10^3/uL (0.83-4.51); Basophil# 0.07 X10^3/uL; Basophil% 0.8 % (0-1); Eosinophil# 0.21 X10^3/uL; Eosinophils% 2.3 % (0-5); Hematocrit 44.4 % (40-54); Hemoglobin 14.7 g/dL (13.0-16.5); Lymphocyte # 2.25 X10^3/ul (0.83-4.51); Lymphocyte % 24.2 % (19-41); Mean Corp Hgb Conc 33.1 g/dL (32-36); Mean Corpuscular Hgb 31.3 pg (27.0-32.0); Mean Corpuscular Volume 94.7 fL (80-94); Mean Platelet Vol. 9.3 fl (6.2-12.0); Monocyte# 0.72 X10^3/uL; Monocyte% 7.7 % (0-10); NRBC Flagged by Analyzer 0 % (0-5); Neutrophil % 64.5 % (47-70); Platelet Count 234 K/mm3 (150-450); RBC Distribution Width SD 45.1 fl (35.1-43.9); Red Blood Count 4.69 M/mm3 (4.6-6.2); White Blood Count 9.3 K/mm3 (4.4-11.0)
[2022-12-23 18:13] LABS: ALB/GLOB Ratio 1.2 RATIO (0.9-2.4); AST(SGOT) 17 U/L (15-37); Alanine Aminotransfer ALT/SGPT 28 U/L (16-61); Albumin, Serum 3.3 g/dL (3.2-5.0); Alkaline Phosphatase 120 U/L (45-117); Anion Gap 5 (5-15); BUN 16 mg/dL (7-18); BUN/Creat Ratio 16.3 RATIO (10-20); Calcium,Total 8.5 mg/dL (8.5-10.1); Chloride 106 mmol/L (98-107); Creatinine, Serum 0.98 mg/dL (0.70-1.30); EST Glomerular Filtration Rate 78 mL/min (>60); Est Glom Filt Rate - Afr Amer 94 mL/min (>60); Globulin 2.8 g/dL (2.2-4.2); Glucose 81 mg/dL (74-106); Potassium 4.1 mmol/L (3.5-5.1); Protein, Total 6.1 g/dL (6.4-8.2); Sodium Level 141 mmol/L (136-145)
== END | disposition home or self-care (01) ==
LOC: BFHLAB 14:22
PROVIDERS: PCP Family Medicine; Referring Provider Family Medicine; Visit Provider Family Medicine
DX: R42 Dizziness and giddiness (principal); I10 Essential (primary) hypertension
CPT/HCPCS: 36415; 80053; 85025

== ENCOUNTER → 2023-01-21 | Outpatient (CLI) | payer MEDICARE, OTHER, SELFPAY ==
--- NOTE | 2023-01-21 10:55 | US_ITS ---
STUDY: SCROTUM ULTRASOUND REASON FOR EXAM: Male, 82 years old. R SCROTAL MASS TECHNIQUE: Ultrasound evaluation of the scrotum was performed with color Doppler and static pastrana-scale imaging. COMPARISON: None. FINDINGS: RIGHT TESTICLE INTRATESTICULAR: There is a normal size of the right testicle. The right testicle measures 4.2 side by 3.3 cm x 2.2 cm. There is a homogenous echotexture. There is normal arterial and normal venous vascularity. There is no demonstrated right testicular mass or cyst. EXTRATESTICULAR: The epididymis is enlarged. The epididymis head measures 4.2 cm x 4 cm x 2.6 cm. There is normal vascularity of the epididymis. There is a well-defined cystic structure within the epididymis, without internal echoes, consistent with an epididymal cyst. There is no demonstrated hydrocele. There is no demonstrated varicocele. There is no demonstrated extratesticular mass or cyst. LEFT TESTICLE INTRATESTICULAR: There is a normal size of the left testicle. The left testicle measures 4.1 cm x 2.5 cm x 2.3 cm. There is a homogenous echotexture. There is normal arterial and normal venous vascularity. There is no demonstrated left testicular mass or cyst. EXTRATESTICULAR: The epididymis is normal in size. The epididymis head measures 1.3 cm x 1.3 cm x 0.9 cm. There is normal vascularity of the epididymis. There is no demonstrated epididymal cystic structure. There is no demonstrated hydrocele. There is no demonstrated varicocele. There is no demonstrated extratesticular mass or cyst. US/Testicular with Arterial Flow IMPRESSION: Right epididymal cyst measuring 4.2 cm x 4 cm x 2.6 cm. Electronically Signed: Zaki Jacobo MD at 12:42 EDT ,
== END | disposition home or self-care (01) ==
LOC: US 10:52
PROVIDERS: PCP Family Medicine; Referring Provider Family Medicine; Visit Provider Family Medicine
DX: N50.89 Other specified disorders of the male genital organs (principal)
CPT/HCPCS: 76870; 93976

== ENCOUNTER → 2023-04-01 | Outpatient (CLI) | payer MEDICARE, OTHER, SELFPAY ==
[2023-04-01 18:19] LABS: PSA,Total - Annual Screen 7.15 ng/mL (0.00-4.00)
== END | disposition home or self-care (01) ==
LOC: BFHLAB 14:23
PROVIDERS: PCP Family Medicine; Visit Provider Urology
DX: R97.20 Elevated prostate specific antigen [PSA] (principal); R35.1 Nocturia
CPT/HCPCS: 36415; 84153; G0103

== ENCOUNTER → 2023-07-11 | Outpatient (CLI) | payer MEDICARE, OTHER, SELFPAY ==
--- OUTSIDE RECORDS SUMMARY | 2023-07-11 10:06 | XMS RPT_ITS | CCD ---
Author Name Unknown Address [address] [place] [address] Organization [facility] Care Team Providers Care Manager Business Development Hospice Name Role Phone Rose Pitts DO Primary Care Provider Jes Carmona MD Unavailable JES CARMONA Referring Unavailable ROSE PITTS Primary Care Unavailable Jes Carmona MD Unavailable JES CARMONA Attending Unavailable ROSE PITTS Primary Care Unavailable JES CARMONA Attending Unavailable ROSE PITTS Primary Care Unavailable JES CARMONA Attending Unavailable ROSE PITTS Primary Care Unavailable Allergies Allergy Classification Reported Allergen(s) Allergy Type Date of Onset Reaction(s) Facility (6 sources) gabapentin; Translations: [GABAPENTIN] Drug Allergy 03-05-2023 Unknown [facility] Work Phone: Medications Current Medications Medication Drug Class(es) Dates Sig (Normalized) Sig (Original) amLODIPine 10 mg oral tablet (4 sources) Dihydropyridine Calcium Channel Kirsty Start: 06-08-2022 take 1 tablet by mouth once daily before mealtime amLODIPine (Norvasc) 10 mg tablet Take 1 tablet (10 mg) by mouth once daily in the morning. Take before meals. 0 06/08/2022 Active citalopram 40 mg oral tablet (4 sources) Serotonin Reuptake Inhibitor Start: 02-06-2023 take 1 tablet by mouth once daily citalopram (CeleXA) 40 mg tablet Take 1 tablet (40 mg) by mouth once daily. 0 02/06/2023 Active clonazePAM 0.5 mg oral tablet (4 sources) Benzodiazepine Start: 02-17-2023 clonazePAM (KlonoPIN) 0.5 mg tablet furosemide 20 mg oral tablet (4 sources) Loop Diuretic Start: 10-10-2022 take 2 tablets by mouth once daily as needed furosemide (Lasix) 20 mg tablet TAKE 2 TABLET BY MOUTH EVERY DAY NEEDED FOR SWELLING 0 10/10/2022 Active losartan potassium 25 mg oral tablet (4 sources) Angiotensin 2 Receptor Kirsty Start: 03-02-2023 losartan (Cozaar) 25 mg tablet lovastatin 10 mg oral tablet (4 sources) HMG-CoA Reductase Inhibitor Start: 02-22-2023 take 1 tablet by mouth once daily lovastatin (Mevacor) 10 mg tablet Take 1 tablet (10 mg) by mouth once daily. 0 02/22/2023 Active omeprazole 40 mg delayed release oral capsule (4 sources) Proton Pump Inhibitor Start: 12-07-2022 take 1 capsule by mouth once daily 30 minutes before mealtime omeprazole (PriLOSEC) [address] capsule TAKE 1 CAPSULE BY MOUTH EVERY DAY 30 MINUTES BEFORE A MEAL 0 12/07/2022 Active Completed/Discontinued Medications Medication Drug Class(es) Dates Sig (Normalized) Sig (Original) gadoterate meglumine (Dotarem) 0.5 mmol/mL contrast injection 18 mL (2 sources) Start: 03-10-2023 End: 03-10-2023 gadoterate meglumine (Dotarem) 0.5 mmol/mL contrast injection 18 mL Problems Active Problems Problem Classification Problem Date Documented Da te Episodic/Chronic Cancer of prostate (4 sources) Malignant tumor of prostate; Translations: [Malignant neoplasm of prostate] Onset: 03-05-2023 03-05-2023 Chronic Genitourinary symptoms and ill-defined conditions (4 sources) Nocturia; Translations: [Nocturia] Onset: 03-05-2023 03-05-2023 Episodic Other male genital disorders (1 source) Cyst of epididymis; Translations: [Cyst of epididymis] 03-05-2023 Episodic Other male genital disorders (2 sources) Cyst of epididymis; Translations: [Cyst of epididymis] Onset: 03-05-2023 Episodic Other screening for suspected conditions (not mental disorders or infectious disease) (8 sources) Raised prostate specific antigen; Translations: [Elevated prostate specific antigen [PSA]] Onset: 03-05-2023 03-05-2023 Episodic Past or Other Problems Problem Classification Problem Date Documented Da te Episodic/Chronic Unclassified (4 sources) Onset: 03-05-2023 03-05-2023 Results Test Name Value Interpretation Reference Range Facil ity Vital Signs Date Time Vital Sign Value Performing Clinician Facility 03-05-2023 11:130400 Body height 190.5 cm Jes Carmona MD Work Phone: [facility] 03-05-2023 11:130400 Body mass index (BMI) [Ratio] 25.75 kg/m2 Jes Carmona MD Work Phone: [facility] 03-05-2023 11: Body weight 93.44 kg Jes Carmona MD Work Phone: [facility] 03-05-2023 11:040 Respiratory rate 16 /min Jes Carmona MD Work Phone: [facility] Encounters Encounter Date Encounter Type Care Provider Facility Start: 04-16-2023 End: 04-16-2023 ambulatory [facility] Start: 03-17-2023 End: 03-17-2023 ambulatory [facility] Start: 03-17-2023 End: 03-17-2023 Office outpatient visit 15 minutes Jes Carmona MD Work Phone: [facility] Procedures Date Procedure Procedure Detail Performing Clinician Start: 03-10-2023 MR PROSTATE AURELIO BOUNDARIES JES CARMONA Start: 03-10-2023 Mri pelvis w/o & w/contrast material Jes Carmona MD Work Phone: Plan of Treatment Date Care Activity Detail Author Start: 03-17-2023 End: 03-17-2023 Telemedicine consultation with patient [facility] Start: 03-10-2023 End: 03-10-2023 Patient encounter procedure 03/10/2023 4:00 PM EDT Appointment [address] [id number] [facility] Start: 03-05-2023 End: 03-05-2024 Creatinine [Mass/volume] in Serum or Plasma Creatinine, Serum Lab Routine Nocturia Expected: 03/05/2023 (Approximate), Expires: 03/05/2024 [facility] Work Phone: Immunizations Immunization Date Immunization Notes Care Provider Bela roseroger 04-24-2009 influenza virus vaccine, unspecified formulation Jes Carmona MD Work Phone: [facility] Work Phone: Payers Date Payer Category Payer Medicare [id number] 2005 Medicare [id number] 2005 Medicare [id number] 2005 Unknown [employer] [id number] 2005-Present [address] [place] [address] [id number] 1940 Unknown [id number] 3 1940 Unknown [id number] 4 1940 Unknown [id number] 4 1940 Unknown [id number] Social History Date Type Detail Facility [facility]: [facility] Work Phone: Start: 03-05-2023 Tobacco use and exposure Smokeless tobacco non-user [facility] Work Phone: Start: 03-05-2023 History of Social function [facility] Work Phone: Start: 03-05-2023 Tobacco use panel [facility] Work Phone: Start: 1940 Sex Assigned At Not on file [facility] Work Phone: Start: 02-23-2023 End: 03-10-2023 Exposure to SARS-CoV-2 (event) Not sure [facility] History of Present illness Narrative 03-17-2023 Jes Carmona MD - 03/17/2023 9:45 AM EST Note Date & Type Note Facility 03-17-2023 History of Present illness Narrative Subjective Patient ID: Jon Be is a 82 y.o. male. HPI Patient is here for prostate MRI results. MRI showed PI-RAD 5 lesion. Hx of prostate cancer. DX 04/25. He has been doing Active Surveillance. No bx since 2014. [place] of 7. No recent PSA has been done. Prior PSA was 8.53 on 03/02. Prior PSA was 8.90 on 01/30. Chronic LUT'S sx are moderate. . He does have urgency and frequency. Denies dysuria. Denies hematuria. Nocturia x3-4. No medication for LUT'S. No hx of kidney stones. Review of Systems Constitutional: Negative for chills and fever. HENT: Negative. Eyes: Negative. Respiratory: Negative for cough and shortness of breath. Cardiovascular: Negative for chest pain and leg swelling. Gastrointestinal: Negative for nausea. Endocrine: Negative. Genitourinary: Negative for difficulty urinating. Negative except for documented in HPI Allergic/Immunologic: Negative. Neurological: Alert & oriented X 3 Hematological: Denies blood thinners Psychiatric/Behavioral: Negative. Objective Physical ExamVirtual VISIT Assessment/Plan Diagnoses and all orders for this visit: Elevated PSA Nocturia Malignant neoplasm of prostate (CMS/HCC) All available PSA values reviewed, Options discussed. Questions answered. Pros/cons of Active Surveilance discussed PSA ordered Mri REVIEWED Discussed Lupron Vs definitive Tx Diet changes for prostate health discussed and educational information given. Pros/Cons of prostate health supplements discussed. Treatment options for LUTS reviewed Discussed timed voiding. Discussed fluid and caffeine intake Treatment options for ED reviewed. Lifestyle change to help prevent UTIs discussed. Encouraged fluid intake. F/U with PSA documented in this encounter [facility] Work Phone: History of Present illness Narrative 03-05-2023 Jes Carmona MD - 03/05/2023 11:00 AM EDT Note Date & Type Note Facility 03-05-2023 History of Present illness Narrative Subjective Patient ID: Jon Be is a 82 y.o. male. HPI Patient is here to establish for right epdidiymal cyst. Recent Scrotal U/S showed right epididmyal cyst measuring 4mm. No pain or discomfort. Hx of prostate cancer. DX 04/25. He has been doing Active Surveillance. No bx since 2014. [place] of 7. No recent PSA has been done. Prior PSA was 8.53 on 03/02. Prior PSA was 8.90 on 01/30. Chronic LUT'S sx are moderate. . He does have urgency and frequency. Denies dysuria. Denies hematuria. Nocturia x3-4. No medication for LUT'S. No hx of kidney stones. Review of Systems Constitutional: Negative for chills and fever. HENT: Negative. Eyes: Negative. Respiratory: Negative for cough and shortness of breath. Cardiovascular: Negative for chest pain and leg swelling. Gastrointestinal: Negative for nausea. Endocrine: Negative. Genitourinary: Negative for difficulty urinating. Negative except for documented in HPI Allergic/Immunologic: Negative. Neurological: Alert & oriented X 3 Hematological: Denies blood thinners Psychiatric/Behavioral: Negative. Objective Physical Exam Vitals and nursing note reviewed. Constitutional: General: He is not in acute distress. Appearance: Normal appearance. Pulmonary: Effort: Pulmonary effort is normal. Abdominal: Tenderness: There is no abdominal tenderness. Genitourinary: Comments: Kidneys non palpable bilaterally Bladder non palpable or tender Scrotum no mass, small R hydrocele Epididymis- RIGHT spermatocele. Non Tender. Testicles: No mass Urethra: No discharge Penis within normal limits... No lesions. Circumcised Prostate - symmetric, no nodules. BENIGN Seminal Vesicals: No mass. Sphincter tone: normal Neurological: Mental Status: He is alert. Assessment/Plan Diagnoses and all orders for this visit: Epididymal cyst Malignant neoplasm of prostate (CMS/HCC) Elevated PSA Nocturia All available PSA values reviewed, Options discussed. Questions answered. Pros/cons of Active Surveilance discussed MRI ordered Diet changes for prostate health discussed and educational information given. Pros/Cons of prostate health supplements discussed. Treatment options for LUTS reviewed Discussed timed voiding. Discussed fluid and caffeine intake Treatment options for ED reviewed. Lifestyle change to help prevent UTIs discussed. Encouraged fluid intake. U/S reviewed Options for Spermatocele discussed F/U with Prostate MRI AFTER above visit I aspirated 40ml of clear fluid Hydrocele/Spermatocele 1% lidocaine used. Area prepped with Betadine and draped. 18 gauge used to aspirate fluid. Sterile gauze placed over the puncture site Please see comments for description of fluid and volume drained. documented in this encounter [facility] Work Phone: Evaluation note Note Date & Type Note Facility documented in this encounter [facility] Work Phone: Evaluation note Note Date & Type Note Facility documented in this encounter [facility] Work Phone: Evaluation note Note Date & Type Note Facility documented in this encounter [facility] Work Phone: Evaluation note Note Date & Type Note Facility documented in this encounter [facility] Work Phone: Reason for Referral Specialty Diagnoses / Procedures Referred By Dennise pickett Referred To Contact Radiology Diagnoses Elevated PSA Procedures MR prostate aurelio boundaries Jes Carmona MD [address] [address] Referral ID Status Reason Start Date Expiration Date Visits Requested Visits Authorized [id number] Authorized Perform Procedure 3 03/04/2024 1 1 Specialty Diagnoses / Procedures Referred By Dennise pickett Referred To Contact Radiology Diagnoses Elevated PSA Procedures MR prostate aurelio boundaries Jes Carmona MD [address] [place] [address] Summary Purpose Family History No Family History Records FoundNo Family History Records Found Advance Directives No Advanced Directives Records FoundNo Advanced Directives Records Found Additional Source Comments Reason for Visit (unrecogniz ed section and content) Specialty Diagnoses / Procedures Referred By Dennise pickett Referred To Contact Radiology Diagnoses Elevated PSA Procedures MR prostate aurelio boundaries Jes Carmona MD [address] [place] [address] Referral ID Status Reason Start Date Expiration Date Visits Requested Visits Authorized [id number] Authorized Perform Procedure 3 03/04/2024 1 1 Reason Comments prostate mri results Care Teams (unrecognized sec tion and content) Manager Business Development Hospice Relationship Specialty Start Date End Date Rose Pitts DO [address] [facility] [place] [facility] [address] [place] [address] PCP - General Family Medicine 02/18/23 Jes Carmona MD [address] [place] [facility] [address] [place] [address] Surgeon Urology 02/18/23 Manager Business Development Hospice Relationship Specialty Start Date End Date Rose Pitts DO [address] [facility] [place] [facility] [address] [place] [address] PCP - General Family Medicine 02/18/23 Jes Carmona MD [address] [facility] [place] [facility] [address] [place] [address] Surgeon Urology 02/18/23 Manager Business Development Hospice Relationship Specialty Start Date End Date Rose Pitts DO [address] [facility] [place] [facility] [address] [place] [address] PCP - General Family Medicine 02/18/23 Jes Carmona MD [address] [facility] [place] [facility] [address] [place] [address] Surgeon Urology 02/18/23 (unrecognized sect ion and content) No Status Records FoundNo Status Records Found INFORMATION SOURCE (unrecogn ized section and content) DATE CREATED AUTHOR AUTHOR'S LAZARUS MARSH 04/19/2023 [facility] FOR RECORDS PERTAINING TO PATIENTS WHO ARE OR HAVE BEEN ENROLLED IN A CHEMICAL DEPENDENCY/SUBSTANCEABUSE PROGRAM, SOME INFORMATION MAY BE OMITTED. This clinical summary was aggregated from multiple sources. Caution should be exercised in using it in the provision of clinical care. This summary normalizes information from multiple sources, and as a consequence, information in this document may materially change the coding, format and clinical context of patient data. In addition, data may be omitted in some cases. CLINICAL DECISIONS SHOULD BE BASED ON THE PRIMARY CLINICAL RECORDS. [facility]. provides no warranty or guarantee of the accuracy or completeness of information in this document.
[2023-07-11 12:41] LABS: ALB/GLOB Ratio 1.1 RATIO (0.9-2.4); AST(SGOT) 17 U/L (15-37); Alanine Aminotransfer ALT/SGPT 16 U/L (16-61); Albumin, Serum 3.3 g/dL (3.2-5.0); Alkaline Phosphatase 118 U/L (45-117); Anion Gap 5 (5-15); BUN 20 mg/dL (7-18); BUN/Creat Ratio 15.5 RATIO (10-20); Calcium,Total 8.5 mg/dL (8.5-10.1); Chloride 108 mmol/L (98-107); Cholesterol 160 mg/dL (200); Creatinine, Serum 1.29 mg/dL (0.70-1.30); EST Glomerular Filtration Rate 57 mL/min (>60); Est Glom Filt Rate - Afr Amer 68 mL/min (>60); Globulin 2.9 g/dL (2.2-4.2); Glucose 113 mg/dL (74-106); High Density Lipoprotein 56 mg/dL; Potassium 4.3 mmol/L (3.5-5.1); Protein, Total 6.2 g/dL (6.4-8.2); Sodium Level 138 mmol/L (136-145); Triglycerides 91 mg/dL; Very Low Density Lipoprotein 18 mg/dL (5-40)
== END | disposition home or self-care (01) ==
LOC: BFHLAB 09:41
PROVIDERS: PCP Family Medicine; Visit Provider Family Medicine
DX: I10 Essential (primary) hypertension (principal); E78.5 Hyperlipidemia, unspecified
CPT/HCPCS: 36415; 80053; 80061

== ENCOUNTER 2023-10-28 12:30 | Outpatient (RCR) | payer MEDICARE, OTHER, SELFPAY ==
--- NOTE | 2023-09-12 15:28 | HP.PTEVAL ---
Patient's Visit Information Visit Information Visit Information: SABI BE is a 82 year old M referred to Physical Therapy by Dr. Jimmie De Leon MD with a diagnosis of R rev TSA 09/01/23. Date of Evaluation: 09/12/23 Physical Therapist: Johan Pepper, DPT, OCS, CSCS Visit Plan Frequency: 2x /Week Duration: 6 Weeks Plan: 2x/week for 6 weeks for 1. AAROM to 130 flexion and 30 er until 09/21 then full gradually 2. Progression of HEP to tolerance per protocol in folder and scanned. 3. Resistance training 10/13, may do isometrics prior if tolerated. scar massage and swelling management throughout. ice as needed. IE: current ex of pendulum, elbow rom, wrist rom, add ball squeeze throughout day and AAROM stick supine flexion and er 10x 3x/day HO given. Subjective Subjective: Goes by MARIA LT R reverse TSA 09/01/23. R shoulder was worn out, creaking , painful for years. Is right handed. Has been in a sling and doing exercises of ROm, other joint movement. In sling and sleeping in it. Will be in sling for a number of weeks. Stopped pain meds 3 days ago. Ice machine until 3 days ago. Comfortable at rest. Sleeping in recliner and tried bed but harder in bed as he is a side sleeper. Better in recliner. Pain is not a big issue to 2/10 intermittently with movement. Basic ADls dressing, bathroom, shower, modified but no help. Not employed. Hobbies: yardwork, normal house stuff. Pain R shoulder: Pain Intensity (Out of 10): 0 Pain Intensity Range: 0 and 2 Objective Objective: Dons and doffs sling easily. R AROM shoulder 100 flexion 90 abduction 30 er, . L WFL. R PROM 128 flexion, 100 abduction, 40 er, 60 IR at 60 abduction elbow, wrist , scapula AROM WFL B. Sensation UE WNL to gross light touch. Swelling present anterior shoulder and medial elbow, generally in R UE. Incision is healed well with just some scabbing left distally adn mild to moderate scar palpation anteriorly. Balance/Special Test Scores Quick DASH Score: 40.9075 Goals Goal 1:: Sleep without waking due to pain in bed Goal Time Frame: 4-6 Weeks Goal 2:: patient feel shoulder 80% back to normal activity and pain 1/10 at worst Goal Time Frame: 4-6 Weeks Goal 3:: 140 flexion and 50 er AROM to normalize activity. Goal Time Frame: 4-6 Weeks Goal 4:: I appropriate HEp resistance and ROM for future health Goal Time Frame: 4-6 Weeks Goal 5:: quickdash score 15 or less Goal Time Frame: 4-6 Weeks Rehabilitation Potential Physical Therapy Diagnosis: stiffness, lack ROM, and weakness after TSA Rehabilitation Potential: Good Anticipated Interventions Patient/Client Instruction: Educate patient on: Condition and Risk Factors For the Purpose of:: To decrease pain, To increase ROM, To improve nutrient delivery to tissue, To increase tolerance to activity/condition/position and To improve ability of physical actions for home/community/work/leisure Therapeutic Exercise to Include: Strength training, Flexibilty training, Gait and locomotor training, Passive ROM, Active ROM and Dynamic Lumbar Stabilization For the Purpose of:: To decrease pain, To increase ROM, To improve nutrient delivery to tissue, To improve muscle performance and motor function and To increase tolerance to activity/condition/position Manual Therapy Techniques to Include: Scar massage, Passive ROM and Soft tissue mobilization For the Purpose of:: To decrease pain, To increase ROM, To improve nutrient delivery to tissue, To improve muscle performance and motor function and To improve ability of physical actions for home/community/work/leisure Cryotherapy (ice pack, ice massage): Yes For the Purpose of:: To decrease pain and To decrease swelling/inflammation Text: Thank you for the opportunity to evaluate your patient. For Medicare and Medicare HMO plans, please review the plan of care and approve it. It will need to be FAXED BACK to us at [phone] for Medicare purposes. For Medicare only, by signing this I certify the plan of care. Please let me know if there are questions or concerns regarding this plan of care. Physician Signature: Date:
--- NOTE | 2023-10-28 13:16 | HP.PTDCSUM ---
Discharge Summary D/C summary: It has been my pleasure to treat SABI BE referred by Dr. 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 Discharge Date: 10/28/23 Please see the following information for a summary of their discharge status. Subjective Subjective: Pt reports that he is feeling good. Notes that he saw the surgeon this morning and he was happy with his progress. Will follow up again in February. Pain R shoulder: Pain Intensity (Out of 10): 0 Overall Improvement % Improvement: 100 Objective Objective/Function: Making steady progress. Minimal limitation at home functionally. Only noticeable difficulty is lifting something heavy off of a top shelf in pantry but is managing with support from other arm. Goals Goal 1:: Sleep without waking due to pain in bed Goal Progress: Goal Met Goal 2:: patient feel shoulder 80% back to normal activity and pain 1/10 at worst Goal Progress: Goal Met Goal 3:: 140 flexion and 50 er AROM to normalize activity. Goal Progress: Goal Met Goal 4:: I appropriate HEp resistance and ROM for future health Goal Progress: Goal Met Goal 5:: quickdash score 15 or less Goal Progress: Goal Met Plan Plan: Re-assess with Johan Pepper DPT immediately following today's session. D/C Information d/c sentence: If there are questions or concerns regarding this patient's physical therapy, please feel free to call me at [phone]. Thank you for the referral of this patient. Sincerely, Johan Pepper, DPT, OCS, CSCS Balance/Gait/Functional tests Balance/Special Test Scores Quick DASH Score: 5.0000 Improvement % Improvement: 100
== END 2023-10-28 19:00 | disposition home or self-care (01) ==
LOC: PT 12:30
PROVIDERS: PCP Family Medicine; Referring Provider Orthopaedic Surgery; Visit Provider Orthopaedic Surgery
DX: Z96.611 Presence of right artificial shoulder joint (principal)
CPT/HCPCS: 97110; 97140; 97161; 97530

== ENCOUNTER → 2023-11-10 | Outpatient (CLI) | payer MEDICARE, OTHER, SELFPAY | END | disposition home or self-care (01) | LOC: BFHLAB 11:37 | PROVIDERS: PCP Family Medicine; Referring Provider Family Medicine; Visit Provider Family Medicine | DX: C61 Malignant neoplasm of prostate (principal) | CPT/HCPCS: 36415; 84153 ==

== ENCOUNTER → 2024-01-01 | Outpatient (CLI) | payer MEDICARE, OTHER, SELFPAY ==
--- NOTE | 2024-01-01 10:20 | RAD_ITS ---
STUDY: X-RAY - RIGHT KNEE REASON FOR EXAM: Male, 83 years old. R MEDIAL KNEE PAIN TECHNIQUE: 4 views of the right knee. COMPARISON: Right knee radiographs dated 12/17/2021. FINDINGS: Normal visualized distal femur. Normal visualized proximal tibia and fibula. Normal proximal tibiofibular articulation. There is no demonstrated fracture. There is persistent chondrocalcinosis of the medial and lateral menisci. There is unchanged mild degenerative arthrosis of the medial femorotibial compartment. There is unchanged mild degenerative arthrosis of the lateral femorotibial compartment. There is unchanged mild degenerative arthrosis of the patellofemoral articulation. The soft tissue structures are unremarkable. 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 Persistent chondrocalcinosis of the medial and lateral menisci. No demonstrated fracture. Electronically Signed: Bao Spears MD at 10:54 EDT ,
== END | disposition home or self-care (01) ==
PROVIDERS: PCP Family Medicine; Referring Provider Family Medicine; Visit Provider Family Medicine
DX: M25.561 Pain in right knee (principal)
CPT/HCPCS: 73564

== ENCOUNTER → 2024-05-13 | Outpatient (CLI) | payer MEDICARE, OTHER, SELFPAY ==
[2024-05-13 18:14] LABS: PSA,Total- Diagnostic 7.86 ng/mL (0.0-4.0)
== END | disposition home or self-care (01) ==
PROVIDERS: PCP Family Medicine; Referring Provider Urology; Visit Provider Urology
DX: C61 Malignant neoplasm of prostate (principal); R97.20 Elevated prostate specific antigen [PSA]
CPT/HCPCS: 36415; 84153

== ENCOUNTER → 2024-11-02 | Outpatient (CLI) | payer MEDICARE, OTHER, SELFPAY ==
[2024-11-02 12:32] LABS: Absolute Lymphocyte Count 1.98 X10^3/uL (0.83-4.51); Absolute Neutrophil Count 4.2 X10^3/uL (2.0-7.7); Basophil# 0.08 X10^3/uL; Basophil% 1.1 % (0-1); Eosinophil# 0.37 X10^3/uL; Hemoglobin 13.8 g/dL (13.0-16.5); Lymphocyte # 1.98 X10^3/ul (0.83-4.51); Lymphocyte % 26.6 % (19-41); Mean Corp Hgb Conc 34.5 g/dL (32-36); Mean Corpuscular Hgb 32.2 pg (27.0-32.0); Mean Corpuscular Volume 93.2 fL (80-94); Mean Platelet Vol. 9.4 fl (6.2-12.0); Monocyte# 0.83 X10^3/uL; Monocyte% 11.1 % (0-10); NRBC Flagged by Analyzer 0 % (0-5); Neutrophil # 4.17 X10^3/uL (2.7-7.7); Neutrophil % 55.9 % (47-70); Platelet Count 246 K/mm3 (150-450); RBC Distribution Width CV 12.7 % (11.6-14.6); RBC Distribution Width SD 43.2 fl (35.1-43.9); Red Blood Count 4.29 M/mm3 (4.6-6.2); White Blood Count 7.5 K/mm3 (4.4-11.0)
[2024-11-02 13:27] LABS: ALB/GLOB Ratio 1.6 RATIO (0.9-2.4); AST(SGOT) 22 U/L (<=37); Alanine Aminotransfer ALT/SGPT 11 U/L (<=46); Albumin, Serum 3.7 g/dL (3.4-4.8); Alkaline Phosphatase 118 U/L (40-129); Anion Gap 11 (5-15); BUN 16 mg/dL (4-19); BUN/Creat Ratio 14.8 RATIO (10-20); Calcium,Total 8.8 mg/dL (7.6-11.0); Carbon Dioxide 22.4 mmol/L (21.0-32.0); Chloride 104 mmol/L (98-108); Cholesterol 149 mg/dL (<=200); Creatinine, Serum 1.08 mg/dL (0.70-1.20); EST Glomerular Filtration Rate 68 (>60); Globulin 2.4 g/dL (2.2-4.2); Glucose 102 mg/dL (70-99); High Density Lipoprotein 44 mg/dL; Low Density Lipoprotein Calc. 83 mg/dL; PSA,Total- Diagnostic 7.55 ng/mL (0.00-4.00); Potassium 4.5 mmol/L (3.3-5.1); Sodium Level 137 mmol/L (133-145); Total Bilirubin 1.08 mg/dL (0.00-1.30); Triglycerides 109 mg/dL; Very Low Density Lipoprotein 22 mg/dL (5-40); cholesterol:hdl ratio screen 3.36
== END | disposition home or self-care (01) ==
LOC: BFHLAB 10:46
PROVIDERS: PCP Family Medicine; Visit Provider Family Medicine
DX: C61 Malignant neoplasm of prostate (principal); I10 Essential (primary) hypertension; E78.5 Hyperlipidemia, unspecified; I25.10 Atherosclerotic heart disease of native coronary artery without angina pectoris
CPT/HCPCS: 36415; 80053; 80061; 84153; 85025

== ENCOUNTER → 2025-01-11 | Outpatient (CLI) | payer MEDICARE, OTHER, SELFPAY ==
[2025-01-11 18:11] LABS: Hematocrit 41.7 % (40-54); Hemoglobin 14.6 g/dL (13.0-16.5); Immature Granulocytes Count 0.040 X10^3/uL (0.0-0.0); Mean Corp Hgb Conc 35.0 g/dL (32-36); Mean Corpuscular Volume 92.7 fL (80-94); Mean Platelet Vol. 9.5 fl (6.2-12.0); NRBC Flagged by Analyzer 0 % (0-5); Platelet Count 230 K/mm3 (150-450); RBC Distribution Width CV 12.1 % (11.6-14.6); RBC Distribution Width SD 41.3 fl (35.1-43.9); Red Blood Count 4.50 M/mm3 (4.6-6.2); White Blood Count 8.6 K/mm3 (4.4-11.0)
[2025-01-11 18:19] LABS: AST(SGOT) 24 U/L (<=37); Alanine Aminotransfer ALT/SGPT 12 U/L (<=46); Albumin, Serum 3.9 g/dL (3.4-4.8); Alkaline Phosphatase 106 U/L (40-129); Anion Gap 10 (5-15); BUN 16 mg/dL (4-19); BUN/Creat Ratio 13.5 RATIO (10-20); Calcium,Total 8.8 mg/dL (7.6-11.0); Carbon Dioxide 23.3 mmol/L (21.0-32.0); Chloride 103 mmol/L (98-108); Globulin 2.4 g/dL (2.2-4.2); Glucose 91 mg/dL (70-99); Potassium 4.0 mmol/L (3.3-5.1)
== END | disposition home or self-care (01) ==
LOC: BFHLAB 15:53
PROVIDERS: PCP Family Medicine; Visit Provider Family Medicine
DX: R10.9 Unspecified abdominal pain (principal)
CPT/HCPCS: 36415; 80053; 81002; 85025

== ENCOUNTER → 2025-01-12 | Outpatient (CLI) | payer MEDICARE, OTHER, SELFPAY ==
[2025-01-12 12:34] LABS: Color, Urine Yellow (Yellow); Glucose, Dipstick Normal (Normal); Ketone-Dipstick Negative (Negative); Leukocyte Esterase-Dipstick Negative /ul (Negative); Nitrite-Dipstick Negative (Negative); Occult Blood-Urine Negative /ul (Negative); Protein-Dipstick Negative (Negative); Specific Gravity, Urine 1.010 (1.002-1.030); Urine Bilirubin Dipstick Negative (Negative)
== END | disposition home or self-care (01) ==
LOC: LABSPEC 08:22
PROVIDERS: PCP Family Medicine; Visit Provider Family Medicine
DX: R10.9 Unspecified abdominal pain (principal)
CPT/HCPCS: 81002

== ENCOUNTER → 2025-01-26 | Outpatient (CLI) | payer MEDICARE, OTHER, SELFPAY ==
--- NOTE | 2025-01-26 16:50 | CT_ITS ---
PROCEDURE: ABDOMEN/PELVIS WITH CONTRAST 01/26/2025 REASON FOR EXAM: DORSALGIA/R FLANK AND ABD PAIN/KNOWN PROATATE CA/CVA TECHNIQUE: Procedure Code: [id number] Modality: CT Procedure: ABDOMEN/PELVIS WITH CONTRAST Coronal and Sagittal reconstruction series were provided. CONTRAST: 100 cc of Isovue 370 intravenous contrast. One or more dose reduction techniques were used (e.g., Automated exposure control, adjustment of the mA and/or kV according to patient size, use of iterative reconstruction technique. COMPARISON: CT abdomen and pelvis 10/06/2018 FINDINGS: Lung bases: Bibasilar dependent atelectasis. Liver: Mild diffuse fatty infiltration. No obvious hepatic mass. Normal-size. Gallbladder: Unremarkable. No biliary ductal dilatation. Spleen: Normal size. Pancreas: Normal size without evidence of mass surrounding inflammation or ductal dilation. Adrenals: Unremarkable. Kidneys: Normal renal sizes. No hydronephrosis. No calculi. Left renal cyst measures 1.9 cm. Bladder: Unremarkable. Reproductive Organs: Prostate mildly enlarged measuring 5.3 cm in transverse diameter. No pelvic masses. Bowel: No bowel obstruction. Enteric contrast noted throughout the small bowel loops. Appendix: Normal. Lymph nodes: Unremarkable. Vasculature: Mild diffuse atherosclerotic calcifications are noted. No aneurysm. Peritoneum / Retroperitoneum: No free fluid or air. Bones: Degenerative changes of the spine. No acute fractures. CT/Abdomen/Pelvis WITH Contrast IMPRESSION: 1. No acute findings in the abdomen or pelvis. 2. Mild diffuse hepatic steatosis. 3. Left renal cyst measures 1.9 cm. 4. Mild prostatomegaly, please correlate with PSA levels. Reading [facility]
== END | disposition home or self-care (01) ==
LOC: CT 16:38
PROVIDERS: PCP Family Medicine; Referring Provider Family Medicine; Visit Provider Family Medicine
DX: M54.9 Dorsalgia, unspecified (principal); R10.9 Unspecified abdominal pain
CPT/HCPCS: 74177; Q9967

== ENCOUNTER → 2025-04-05 | Outpatient (CLI) | payer MEDICARE, OTHER, SELFPAY ==
[2025-04-05 16:13] LABS: AST(SGOT) 26 U/L (<=37); Alanine Aminotransfer ALT/SGPT 12 U/L (<=46); Albumin, Serum 3.6 g/dL (3.4-4.8); Alkaline Phosphatase 100 U/L (40-129); Anion Gap 10 (5-15); BUN 16 mg/dL (4-19); BUN/Creat Ratio 15.1 RATIO (10-20); Calcium,Total 8.8 mg/dL (7.6-11.0); Carbon Dioxide 24.8 mmol/L (21.0-32.0); Chloride 105 mmol/L (98-108); Globulin 2.2 g/dL (2.2-4.2); Glucose 97 mg/dL (70-99); PSA,Total- Diagnostic 7.43 ng/mL (0.00-4.00); Potassium 4.7 mmol/L (3.3-5.1)
== END | disposition home or self-care (01) ==
LOC: LAB.FUTURE 11:58 → BFHLAB 12:02
PROVIDERS: PCP Family Medicine; Visit Provider Family Medicine
DX: C61 Malignant neoplasm of prostate (principal); I10 Essential (primary) hypertension
CPT/HCPCS: 80053; 84153